=== PATIENT | female | born 1935 | race Caucasian/White ===

== ENCOUNTER → 2016-09-27 | Outpatient (REF) | payer MEDICARE, OTHER ==
[~2016-09-27] MED LIST: ASPI1TAB PO; ATEN25TA PO; ATOR1TAB19 PO; CALC600T7 PO; HYDR12.55 PO; LISI-538 PO; OCUVCAP PO
== END ==
LOC: M LAB REF 15:35
PROVIDERS: ATTEND Internal Medicine Endocrinology, Diabetes & Metabolism
DX: E04.1 Nontoxic single thyroid nodule (principal)

== ENCOUNTER → 2017-01-21 | Outpatient (REF) | payer MEDICARE, OTHER ==
[2017-01-21 13:16] LABS: ALBUMIN 3.6 GM/DL (3.2-5.2); ALBUMIN/GLOBULIN RATIO 1.09 (1.00-1.93); BILIRUBIN,TOTAL 0.3 MG/DL (0.2-1.0); CREATININE FOR GFR 1.09 MG/DL (0.55-1.02); GLOMERULAR FILTRATION RATE 51.4 (>32); POTASSIUM SERUM 3.6 MEQ/L (3.5-5.1); TOTAL PROTEIN 6.9 GM/DL (6.4-8.2)
== END ==
LOC: M LABDRAW1 12:23
PROVIDERS: ATTEND Physician Assistant
DX: E78.00 Pure hypercholesterolemia, unspecified (principal); I11.9 Hypertensive heart disease without heart failure

== ENCOUNTER 2017-03-09 16:35 | Emergency (ER) | payer MEDICARE, BC, OTHER ==
[~2017-03-09] VITALS: Ht 152.4 cm; Wt 97.9 kg
[2017-03-09] MEDS ORDERED: ADACEL/BOOSTRIX VACCINE (DIPHTH/PERTUSS/ACELL/TETANUS)0.5ML SYR (90715) IM ONE (17:45)
[2017-03-09] MEDS ORDERED: LIDOCAINE 2% MDV 20 ML VIAL SC ONE (18:15)
[2017-03-09 18:53] VITALS: BP 172/82
--- NOTE | 2017-03-09 19:04 | REP ---
Right index finger series: Four views: History: Distal index finger injury. Findings: There is soft-tissue swelling about the distal phalanx and DIP joint of the index finger. Osteoarthritic spurring and joint space narrowing is seen at the DIP joint. This is moderate in degree. No fracture or opaque foreign body is appreciated. 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 No fracture or opaque foreign body seen. Signed by Lorenzo Murphy MD 03/09/2017 08:28 P
== END 2017-03-09 18:56 | disposition home or self-care (01) ==
LOC: M ED 16:35
DX: S61.210A Laceration without foreign body of right index finger without damage to nail, initial encounter (principal); W23.1XXA Caught, crushed, jammed, or pinched between stationary objects, initial encounter; Y92.099 Unspecified place in other non-institutional residence as the place of occurrence of the external cause; Y93.89 Activity, other specified; Y99.9 Unspecified external cause status

== ENCOUNTER → 2017-06-30 | Outpatient (REF) | payer MEDICARE, OTHER ==
[2017-06-30 15:58] LABS: BASO # 0.1 10^3/uL (0.0-0.2); BASO % 0.6 % (0.0-1.0); EOS # 0.2 10^3/uL (0.0-0.50); EOS % 2.6 % (0.0-3.0); IMMATURE GRANULOCYTE % 0.3 % (0-0); LYMPH # 2.7 10^3/uL (1.5-4.5); LYMPH % 35.3 % (24.0-44.0); MEAN CORPUSCULAR HEMOGLOBIN 29.7 pg (27.0-33.0); MEAN CORPUSCULAR HGB CONC 33.6 g/dl (32.0-36.5); MEAN CORPUSCULAR VOLUME 88.3 fl (80.0-96.0); MONO # 0.5 10^3/uL (0.0-0.8); NEUTROPHILS # 4.2 10^3/uL (1.8-7.7); NEUTROPHILS % 54.2 % (36.0-66.0); PLATELET COUNT, AUTOMATED 330 10^3/uL (150-450); RED CELL DISTRIBUTION WIDTH 13.5 % (11.5-14.5); WHITE BLOOD COUNT 7.8 10^3/uL (4.0-10.0)
[2017-06-30 16:29] LABS: ERYTHROCYTE SEDIMENTATION RATE 30 mm/hr (0-30)
== END ==
LOC: M LABDRAW1 14:35
PROVIDERS: ATTEND Ophthalmology
DX: M31.6 Other giant cell arteritis (principal)

== ENCOUNTER → 2017-09-20 | Outpatient (REF) | payer MEDICARE, OTHER ==
[2017-09-20 16:30] LABS: C REACTIVE PROTEIN QUANTITATIV < 0.30 MG/DL (0.00-0.30)
[2017-09-20 17:00] LABS: ERYTHROCYTE SEDIMENTATION RATE 14 mm/hr (0-30)
== END ==
LOC: M LABDRAW1 15:33
DX: M31.6 Other giant cell arteritis (principal)
CPT/HCPCS: 86140

== ENCOUNTER → 2017-10-17 | Outpatient (REF) | payer MEDICARE, OTHER ==
[2017-10-17 12:41] LABS: C REACTIVE PROTEIN QUANTITATIV < 0.30 MG/DL (0.00-0.30)
[2017-10-17 13:21] LABS: ERYTHROCYTE SEDIMENTATION RATE 9 mm/hr (0-30)
== END ==
LOC: M LABDRAW1 11:48
DX: M31.6 Other giant cell arteritis (principal)
CPT/HCPCS: 86140

== ENCOUNTER → 2017-11-18 | Outpatient (REF) | payer MEDICARE, OTHER ==
[2017-11-18 12:10] LABS: C REACTIVE PROTEIN QUANTITATIV 0.33 MG/DL (0.00-0.30)
[2017-11-18 12:34] LABS: ERYTHROCYTE SEDIMENTATION RATE 10 mm/hr (0-30)
== END ==
LOC: M LABDRAW1 10:31
DX: M31.6 Other giant cell arteritis (principal)
CPT/HCPCS: 86140

== ENCOUNTER 2017-12-08 10:31 | Emergency (ER) | payer MEDICARE, BC, OTHER ==
[2017-12-08 10:21] LABS: BASO % 0.1 % (0.0-1.0); EOS % 0.3 % (0.0-3.0); HEMATOCRIT 40.6 % (36.0-47.0); IMMATURE GRANULOCYTE % 4.6 % (0-3.0); LYMPH % 21.5 % (24.0-44.0); MEAN CORPUSCULAR HEMOGLOBIN 30.6 pg (27.0-33.0); MEAN CORPUSCULAR HGB CONC 34.5 g/dl (32.0-36.5); MEAN CORPUSCULAR VOLUME 88.6 fl (80.0-96.0); MONO # 0.9 10^3/uL (0.0-0.8); MONO % 6.6 % (0.0-5.0); NEUTROPHILS # 9.4 10^3/uL (1.8-7.7); NEUTROPHILS % 66.9 % (36.0-66.0); PLATELET COUNT, AUTOMATED 314 10^3/uL (150-450); RED BLOOD COUNT 4.58 10^6/uL (4.00-5.40); RED CELL DISTRIBUTION WIDTH 15.6 % (11.5-14.5)
[2017-12-08] MEDS: PANTOPRAZOLE 40MG INJ (PROTONIX) (C9113) IV (10:32)
[2017-12-08 10:39] LABS: ALBUMIN 3.2 GM/DL (3.2-5.2); ALKALINE PHOSPHATASE 48 U/L (45-117); ALT/SGPT 50 U/L (12-78); ANION GAP 7 MEQ/L (8-16); AST/SGOT 21 U/L (7-37); BILIRUBIN,DIRECT 0.1 MG/DL (0.0-0.2); BILIRUBIN,TOTAL 0.4 MG/DL (0.2-1.0); BLOOD UREA NITROGEN 37 MG/DL (7-18); CALCIUM LEVEL 9.1 MG/DL (8.8-10.2); CARBON DIOXIDE LEVEL 30 MEQ/L (21-32); CHLORIDE LEVEL 104 MEQ/L (98-107); CPK CREATINE PHOSPHOKINASE 44 U/L (26-192); CREATININE FOR GFR 1.13 MG/DL (0.55-1.30); GLOMERULAR FILTRATION RATE 49.2 (>32); GLUCOSE, FASTING 83 MG/DL (70-100); LIPASE 129 U/L (73-393); SODIUM LEVEL 141 MEQ/L (136-145); TOTAL PROTEIN 6.4 GM/DL (6.4-8.2); TROPONIN I 0.02 NG/ML (< 0.10)
[2017-12-08 10:44] LABS: CK-MB VALUE MASS 3.2 NG/ML (<3.6); MB/CK RELATIVE INDEX 7.27 (< OR =4)
== END 2017-12-08 12:28 | disposition home or self-care (01) ==
LOC: M ED 10:31
DX: K29.60 Other gastritis without bleeding (principal); K20.9 Esophagitis, unspecified; T38.0X5A Adverse effect of glucocorticoids and synthetic analogues, initial encounter; I12.9 Hypertensive chronic kidney disease with stage 1 through stage 4 chronic kidney disease, or unspecified chronic kidney disease; N18.3 Chronic kidney disease, stage 3 (moderate); K58.9 Irritable bowel syndrome, unspecified; K21.9 Gastro-esophageal reflux disease without esophagitis; H40.9 Unspecified glaucoma; Z79.82 Long term (current) use of aspirin; Z79.899 Other long term (current) drug therapy; Z79.52 Long term (current) use of systemic steroids; Z87.891 Personal history of nicotine dependence; Z98.890 Other specified postprocedural states
CPT/HCPCS: C9113

== ENCOUNTER → 2018-01-13 | Outpatient (REF) | payer MEDICARE, BC, OTHER ==
[2018-01-13 16:01] LABS: CREATININE FOR GFR 1.21 MG/DL (0.55-1.30); GLOMERULAR FILTRATION RATE 45.5 (>32)
[2018-01-13 16:01] LABS: BLOOD UREA NITROGEN 35 MG/DL (7-18)
== END ==
LOC: M LABDRAW1 13:24
DX: Z79.899 Other long term (current) drug therapy (principal); M31.6 Other giant cell arteritis
CPT/HCPCS: 82565

== ENCOUNTER → 2018-02-07 | Outpatient (REF) | payer MEDICARE, OTHER ==
[2018-02-07 13:45] LABS: C REACTIVE PROTEIN QUANTITATIV < 0.30 MG/DL (0.00-0.30)
[2018-02-07 14:28] LABS: ERYTHROCYTE SEDIMENTATION RATE 51 mm/hr (0-30)
== END ==
LOC: M LABDRAW1 13:19
DX: M31.6 Other giant cell arteritis (principal); Z79.899 Other long term (current) drug therapy
CPT/HCPCS: 86140

== ENCOUNTER → 2018-04-17 | Outpatient (REF) | payer MEDICARE, OTHER ==
[2018-04-17 12:18] LABS: BASO # 0.1 10^3/uL (0.0-0.2); BASO % 0.5 % (0.0-1.0); EOS # 0.2 10^3/uL (0.0-0.50); EOS % 1.1 % (0.0-3.0); HEMATOCRIT 37.5 % (36.0-47.0); HEMOGLOBIN 12.8 g/dl (12.0-15.5); IMMATURE GRANULOCYTE # 0.2 10^3/uL (0-0); IMMATURE GRANULOCYTE % 1.4 % (0-3.0); LYMPH # 2.4 10^3/uL (1.5-4.5); LYMPH % 17.1 % (24.0-44.0); MEAN CORPUSCULAR HEMOGLOBIN 32.1 pg (27.0-33.0); MEAN CORPUSCULAR HGB CONC 34.1 g/dl (32.0-36.5); MONO # 0.7 10^3/uL (0.0-0.8); MONO % 5.3 % (0.0-5.0); NEUTROPHILS # 10.3 10^3/uL (1.8-7.7); NEUTROPHILS % 74.6 % (36.0-66.0); PLATELET COUNT, AUTOMATED 302 10^3/uL (150-450); RED BLOOD COUNT 3.99 10^6/uL (4.00-5.40); RED CELL DISTRIBUTION WIDTH 13.3 % (11.5-14.5); WHITE BLOOD COUNT 13.8 10^3/uL (4.0-10.0)
[2018-04-17 12:28] LABS: C REACTIVE PROTEIN QUANTITATIV < 0.30 MG/DL (0.00-0.30)
[2018-04-17 13:27] LABS: ERYTHROCYTE SEDIMENTATION RATE 9 mm/hr (0-30)
== END ==
LOC: M LABDRAW1 11:38
DX: Z79.899 Other long term (current) drug therapy (principal)
CPT/HCPCS: 86140

== ENCOUNTER 2018-06-07 16:34 | Emergency (ER) | payer MEDICARE, BC, OTHER ==
[2018-06-07] MEDS: traMADol 50 MG TAB PO (19:24)
== END 2018-06-07 19:33 | disposition home or self-care (01) ==
LOC: M ED 16:34
DX: M25.562 Pain in left knee (principal); R10.30 Lower abdominal pain, unspecified; Z91.81 History of falling; I10 Essential (primary) hypertension; E78.5 Hyperlipidemia, unspecified; K21.9 Gastro-esophageal reflux disease without esophagitis; Z87.891 Personal history of nicotine dependence; Z79.899 Other long term (current) drug therapy; Z79.82 Long term (current) use of aspirin
CPT/HCPCS: 73564

== ENCOUNTER → 2018-06-08 | Outpatient (REF) | payer MEDICARE, OTHER ==
[2018-06-08 13:16] LABS: ERYTHROCYTE SEDIMENTATION RATE 12 mm/hr (0-30)
== END ==
LOC: M LABDRAW1 12:09
DX: M31.6 Other giant cell arteritis (principal)
CPT/HCPCS: 36415

== ENCOUNTER → 2018-11-03 | Outpatient (REF) | payer MEDICARE, OTHER ==
[~2018-11-03] MED LIST changes: +ACET30TAB PO; +ACET500T15 PO; +CAPS0.022 TOP; +FAMO1TAB11 PO; +METO1TAB32 PO; +OXYB5TAB PO; +PRED5TA PO; +PROT1TAB2 PO; +STOO100C PO; +SUCR1TA PO
== END ==
LOC: M LABDRAW1 16:56
PROVIDERS: ATTEND Nurse Practitioner
DX: M31.6 Other giant cell arteritis (principal)

== ENCOUNTER 2019-05-01 13:59 | Emergency (ER) | payer MEDICARE, BC, OTHER ==
[~2019-05-01] VITALS: Ht 149.9 cm; Wt 46.0 kg
[~2019-05-01 13:59] MED LIST changes: +ACET-716 PO; -ACET30TAB PO; -ASPI1TAB PO; +ASPI81TA26 PO; +MM S100C PO; -OXYB5TAB PO; +OXYB5TAB2 PO; -STOO100C PO
[2019-05-01] MEDS ORDERED: DONETAB6 PO (15:28)
[2019-05-01] MEDS ORDERED: CITA40TA4 PO (15:29)
[2019-05-01] MEDS ORDERED: NS 500 ML IV ONE (15:30)
[2019-05-01 16:36] LABS: BASO # 0.1 10^3/uL (0.0-0.2); BASO % 1.2 % (0.0-1.0); EOS # 0.2 10^3/uL (0.0-0.50); EOS % 2.6 % (0.0-3.0); HEMATOCRIT 36.8 % (36.0-47.0); HEMOGLOBIN 12.3 g/dl (12.0-15.5); LYMPH % 33.7 % (24.0-44.0); MEAN CORPUSCULAR HEMOGLOBIN 30.6 pg (27.0-33.0); MEAN CORPUSCULAR HGB CONC 33.4 g/dl (32.0-36.5); MEAN CORPUSCULAR VOLUME 91.5 fl (80.0-96.0); MONO # 0.4 10^3/uL (0.0-0.8); MONO % 6.7 % (0.0-5.0); NEUTROPHILS # 3.3 10^3/uL (1.8-7.7); NEUTROPHILS % 55.8 % (36.0-66.0); PLATELET COUNT, AUTOMATED 266 10^3/uL (150-450); RED BLOOD COUNT 4.02 10^6/uL (4.00-5.40); WHITE BLOOD COUNT 5.8 10^3/uL (4.0-10.0)
[2019-05-01 16:59] LABS: ALBUMIN 3.5 GM/DL (3.2-5.2); ALT/SGPT 20 U/L (12-78); BILIRUBIN,DIRECT < 0.1 MG/DL (0.0-0.2); BILIRUBIN,TOTAL 0.3 MG/DL (0.2-1.0); BLOOD UREA NITROGEN 29 MG/DL (7-18); CALCIUM LEVEL 9.5 MG/DL (8.8-10.2); CARBON DIOXIDE LEVEL 25 MEQ/L (21-32); CHLORIDE LEVEL 109 MEQ/L (98-107); CK-MB VALUE MASS < 1.0 NG/ML (<3.6); CPK CREATINE PHOSPHOKINASE 74 U/L (26-192); CREATININE FOR GFR 0.94 MG/DL (0.55-1.30); GLOMERULAR FILTRATION RATE > 60.0 (>32); GLUCOSE, FASTING 72 MG/DL (70-100); LIPASE 220 U/L (73-393); MB/CK RELATIVE INDEX 1.35 (< OR =4); SODIUM LEVEL 139 MEQ/L (136-145); TOTAL PROTEIN 6.3 GM/DL (6.4-8.2); TROPONIN I < 0.02 NG/ML (< 0.10)
[2019-05-01] MEDS ORDERED: ISOVUE-370 76% 100ML VIAL (Q9967) As Ordered ONE (18:03)
--- NOTE | 2019-05-01 18:45 | REPVR ---
EXAM: CT Abdomen and Pelvis With Contrast EXAM DATE/TIME: 05/01/2019 6:12 PM CLINICAL HISTORY: 83 years old, female; Abdominal pain; Generalized; Additional info: Diffuse abd pain x4 days TECHNIQUE: Imaging protocol: Axial computed tomography images of the abdomen and pelvis with intravenous contrast. Radiation optimization: All CT scans at this facility use at least one of these dose optimization techniques: automated exposure control; mA and/or kV adjustment per patient size (includes targeted exams where dose is matched to clinical indication); or iterative reconstruction. Contrast material: ISOVUE 370; Contrast volume: 100 ml; Contrast route: IV; COMPARISON: CR Hip, Ap,Lat 06/07/2018 5:07 PM FINDINGS: Significant exam limitation secondary to patient motion Lungs: No suspicious mass or airspace process in the visualized lung bases. Liver: Liver is unremarkable except for a simple fluid density 5 mm cyst posterior to the gallbladder fossa. Gallbladder and bile ducts: At least one calcified gallstone is seen within the lumen of the gallbladder. Pancreas: Pancreas appears normal. No focal mass or peripancreatic inflammation. Spleen: Spleen appears homogeneous without focal mass. Adrenals: Adrenal glands are normal in appearance. Kidneys and ureters: Kidneys are grossly unremarkable. Stomach and bowel: No evidence of small bowel obstruction. Diverticular changes are present within the colon without inflammation. Appendix: No evidence of acute appendicitis without convincing visualization of the appendix. Intraperitoneal space: No pneumoperitoneum. No abnormal pelvic mass. Vasculature: Atherosclerotic change present in the aorta, without aneurysm. Lymph nodes: No enlarged lymph nodes. Bladder: Bladder appears normal. Bones/joints: Degenerative changes are seen in the lumbar spine with disc height loss, endplate osteophytes and hypertrophic facet arthropathy. Other findings: Images are limited due to patient motion. IMPRESSION: 1. Fairly extensive colonic diverticular change without evidence of active inflammation. 2. Cholelithiasis without biliary obstruction. 3. Exam Limited significantly because of patient motion COMMENT: Consistent with the [employer]'s Incidental Findings Committee Report (J Am Mathieu Radiol 2010): Unless the patient's specific circumstances suggest otherwise, any liver lesion 0.5 cm or less, any cystic kidney lesion less than 1.0 cm, and/or any adrenal lesion 1.0 cm or less not otherwise characterized in this report as possessing suspicious or indeterminate imaging features is/are highly likely to be benign and do not require follow-up imaging or biopsy. Electronically signed by: Ketan Michaels On 05/01/2019 18:45:15 PM
--- NOTE | 2019-05-01 20:35 | ECGEPIP ---
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
[2019-05-01 21:48] VITALS: BP 191/81
== END 2019-05-01 22:17 | disposition home or self-care (01) ==
LOC: M ED 13:59
DX: A04.0 Enteropathogenic Escherichia coli infection (principal); E86.0 Dehydration; K80.20 Calculus of gallbladder without cholecystitis without obstruction; K57.90 Diverticulosis of intestine, part unspecified, without perforation or abscess without bleeding; M54.9 Dorsalgia, unspecified; I10 Essential (primary) hypertension; E78.5 Hyperlipidemia, unspecified; J44.9 Chronic obstructive pulmonary disease, unspecified; M81.0 Age-related osteoporosis without current pathological fracture; R32 Unspecified urinary incontinence; I65.29 Occlusion and stenosis of unspecified carotid artery; Z87.891 Personal history of nicotine dependence
CPT/HCPCS: 74177; 80048; 80076; 81001; 82550; 82553; 83690; 84484; 85025; 87086; 87507; 93005; 96360; 96361; 99284; Q9967

== ENCOUNTER 2019-05-31 12:32 | Inpatient (IN) | payer MEDICARE, BC, OTHER ==
[~2019-05-31] VITALS: Ht 152.4 cm; Wt 46.5 kg
[~2019-05-31 12:32] MED LIST changes: +CITA40TA4 PO; +DONETAB6 PO
[2019-05-31] MEDS ORDERED: ALIG4CAP PO (12:49)
[2019-05-31 13:18] LABS: BASO # 0.1 10^3/uL (0.0-0.2); BASO % 0.6 % (0.0-1.0); EOS % 0.2 % (0.0-3.0); HEMATOCRIT 39.8 % (36.0-47.0); HEMOGLOBIN 13.5 g/dl (12.0-15.5); LYMPH # 1.2 10^3/uL (1.5-5.0); LYMPH % 14.1 % (24.0-44.0); MEAN CORPUSCULAR HEMOGLOBIN 30.8 pg (27.0-33.0); MEAN CORPUSCULAR HGB CONC 33.9 g/dl (32.0-36.5); MEAN CORPUSCULAR VOLUME 90.7 fl (80.0-96.0); MONO # 0.4 10^3/uL (0.0-0.8); MONO % 4.7 % (0.0-5.0); NEUTROPHILS # 6.8 10^3/uL (1.5-8.5); NEUTROPHILS % 80.2 % (36.0-66.0); PLATELET COUNT, AUTOMATED 280 10^3/uL (150-450); RED BLOOD COUNT 4.39 10^6/uL (4.00-5.40); VENOUS BASE EXCESS 1.9 (-2.0-2.0); VENOUS HCO3 27.3 MEQ/L (23.0-27.0); VENOUS O2 SATURATION 80.8 % (60.0-80.0); VENOUS PARTIAL PRESSURE CO2 45.4 mmHg (38.0-50.0); VENOUS PARTIAL PRESSURE O2 47.1 mmHg (30.0-50.0); VENOUS PH 7.397 UNITS (7.330-7.430); VENOUS STANDARD HCO3 25.7 MEQ/L; VENOUS TOTAL CO2 28.7 MEQ/L (24.0-28.0); WHITE BLOOD COUNT 8.5 10^3/uL (4.0-10.0)
[2019-05-31] MEDS: NS 1,000 ML IV SCH ×2 (13:27→23:34)
[2019-05-31] MEDS ORDERED: LABETALOL HCL 100 MG/20 ML VIAL IV STA (13:38)
[2019-05-31] MEDS ORDERED: METOPROLOL TART 25 MG TABLET PO ONE (13:45)
--- NOTE | 2019-05-31 14:02 | REP ---
CT BRAIN WITHOUT IV CONTRAST: CT brain performed without IV contrast. There is moderate atrophy. There is no midline shift or mass effect. Patchy periventricular small vessel ischemic changes are seen in the right matter bilaterally. There is no acute intracranial hemorrhage. There is no extra-axial fluid collection. No skull fracture is seen. There are vascular calcifications in the carotid siphons. IMPRESSION: Chronic changes as above with no acute intracranial hemorrhage or other acute finding. Electronically Signed by Kel Alicea MD 05/31/2019 05:39 P
--- NOTE | 2019-05-31 14:05 | REP ---
CT CERVICAL SPINE: CT cervical spine performed in the axial plane with sagittal and coronal reconstruction images. There is no compression fracture. There is no prevertebral soft tissue swelling. There is moderate spurring with subchondral sclerosis and disc space narrowing at C5-6 and C6-7, with posterior osteophytic ridging. There is disc bulging at C4-5. IMPRESSION: Degenerative changes without evidence of acute fracture or dislocation. Electronically Signed by Kel Alicea MD 05/31/2019 05:39 P
[2019-05-31 14:06] LABS: ALBUMIN 3.7 GM/DL (3.2-5.2); ALT/SGPT 19 U/L (12-78); BILIRUBIN,DIRECT 0.1 MG/DL (0.0-0.2); BILIRUBIN,TOTAL 0.5 MG/DL (0.2-1.0); BLOOD UREA NITROGEN 20 MG/DL (7-18); CALCIUM LEVEL 9.4 MG/DL (8.8-10.2); CARBON DIOXIDE LEVEL 28 MEQ/L (21-32); CHLORIDE LEVEL 104 MEQ/L (98-107); CK-MB VALUE MASS < 1.0 NG/ML (<3.6); CPK CREATINE PHOSPHOKINASE 35 U/L (26-192); GLOMERULAR FILTRATION RATE 56.4 (>32); GLUCOSE, FASTING 88 MG/DL (70-100); MB/CK RELATIVE INDEX 2.86 (< OR =4); POTASSIUM SERUM 3.8 MEQ/L (3.5-5.1); SODIUM LEVEL 138 MEQ/L (136-145); THYROID STIMULATING HORMONE 0.708 uIU/ML (0.358-3.740); TOTAL PROTEIN 7.2 GM/DL (6.4-8.2); TROPONIN I < 0.02 NG/ML (< 0.10)
--- NOTE | 2019-05-31 14:11 | REP ---
CHEST, SINGLE VIEW: There is no evidence of acute infiltrate. No pleural effusion is seen. The heart is normal in size. The mediastinal silhouette is unremarkable. The visualized osseous structures are intact. There is calcification of the thoracic aorta. IMPRESSION: No acute pulmonary disease. Electronically Signed by Kel Alicea MD 05/31/2019 05:39 P
[2019-05-31] MEDS ORDERED: ACET25TA12 PO (15:41)
[2019-05-31] MEDS ORDERED: DONE10TA90 PO (15:41)
[2019-05-31] MEDS ORDERED: DOCU100C16 PO (15:41)
[2019-05-31] MEDS ORDERED: MOM 30ML SUSPENSION UDC PO PRN (15:45)
--- NOTE | 2019-05-31 16:02 | HPEPDOC ---
General Date of Admission May 31, 2019 at 12:33 Date of Service: May 31, 2019 Chief Complaint The patient is a 84-year-old female admitted with a reason for visit of FALL. Source: Patient, Family Exam Limitations: Mild cognitive slowing Timing/Duration: 4-6 hours Severity: Mild Associated Symptoms: Headaches, Loss of appetite, Nausea History of Present Illness Pt a 84 yo female with PMH of temporal arteritis and b/l internal carotid artery luminal narrowing less than 50% presented to [facility] due to syncope episode that happened this morning around 10AM. It was noted that patient went into the bathroom to urinate, and she lost consciousness and slumped to the flood. Family member reported she called her grand-daughter a few minutes later on. It was noted that she did not hit her body. She reported nausea prior to the syncope episode. Pt reported bilateral temporal region headache; reported being on prednisone tx for temporal arteritis about 2 years ago; reported vision is not t oo good but no further info could be obtained. She reported diffuse diarrhea for the past few months as well as decreased appetite due to dysphagia; pt is unable if there's sensation of food stuck in her throat. No other complaints was noted including fever, chills, vomiting, chest pain, palpitation, or sob. Home Medications Scheduled Acetaminophen/Diphenhydramine (Acetaminophen Pm Caplet) 1 Each Tablet, 2 TAB PO QHS, (Reported) Bifidobacterium Infantis (Align) 4 Mg Capsule, 1 CAP PO QPM, (Reported) Calcium Carbonate/Vitamin D3 (Calcium 600-Vit D3 200 Tablet) 1 Tab Tab, 1 TAB PO QPM, (Reported) Citalopram Hydrobromide (Citalopram HBr) 40 Mg Tablet, 40 MG PO QPM, (Reported) Donepezil HCl (Donepezil HCl) 10 Mg Tablet, 10 MG PO QPM, (Reported) Oxybutynin Chloride (Oxybutynin Chloride ER) 5 Mg Tab, 5 MG PO QPM, (Reported) Scheduled PRN Acetaminophen (Acetaminophen) 500 Mg Tab, 500 MG PO Q4H PRN for PAIN, (Reported) Docusate Sodium (Docusate Sodium) 100 Mg Capsule, 100 MG PO DAILY PRN for CONSTIPATION, (Reported) Allergies Coded Allergies: No Known Allergies (Unverified , 02/10/15) Past Medical History Medical History Temporal artery arteritis Bilateral internal carotid artery narrowing less than 50% HTN now not requiring BP meds outpt Dementia Urinary urgency EPEC GI infection Surgical History Colonoscopy Family History Mother had a stroke Social History * Smoker: former Smoker (Quit years ago; smoke [id number] hx) Alcohol: Denies Lives at home with daughter and grand-daughter A-FIB/CHADSVASC A-FIB History Current/History of A-Fib/PAF?: No Review of Systems Constitutional: Denies: Chills, Fever ENT: Reports: Dysphagia Pulmonary: Denies: Dyspnea Cardiovascular: Denies: Chest Pain, Palpitations Gastrointestinal: Reports: Nausea, Diarrhea, Other Symptoms (dysphagia and decreased appetite); Denies: Vomiting, Abdominal Pain, Hematochezia Genitourinary: Reports: Incontinence (urge incontinence, chronic) Physical Examination General Exam: Positive: Alert, No Acute Distress Eye Exam: Positive: EOMI ENT Exam: Positive: Atraumatic, Other ENT (mucous membrane appears to be dry) Neck Exam: Positive: Supple Chest Exam: Positive: Clear to auscultation, Normal air movement; Negative: Rales, Rhonchi, Wheezing Heart Exam: Positive: Rate Normal, Regular Rhythm, Normal S1, Normal S2 Abdomen Exam: Positive: Normal bowel sounds, Soft Extremity Exam: Negative: Edema, Tenderness Neuro Exam: Positive: Normal Speech, Normal Tone, Cranial Nerves 3-12 NL Psych Exam: Positive: Mood NL, Oriented x 3 Vital Signs Vital Signs Date Time Temp Pulse Resp B/P (MAP) Pulse Ox O2 Delivery O2 Flow Rate FiO2 05/31/19 15:19 98.3 05/31/19 14:47 72 05/31/19 14:45 18 152/70 (97) 05/31/19 12:47 98 05/31/19 12:46 Room Air Laboratory Data Labs 24H Laboratory Tests 2 05/31/19 13:06: Immature Granulocyte % (Auto) 0.2, White Blood Count 8.5, Red Blood Count 4.39, Hemoglobin 13.5, Hematocrit 39.8, Mean Corpuscular Volume 90.7, Mean Corpuscular Hemoglobin 30.8, Mean Corpuscular Hemoglobin Concent 33.9, Red Cell Distribution Width 13.8, Platelet Count 280, Neutrophils (%) (Auto) 80.2H, Lymphocytes (%) (Auto) 14.1L, Monocytes (%) (Auto) 4.7, Eosinophils (%) (Auto) 0.2, Basophils (%) (Auto) 0.6, Neutrophils # (Auto) 6.8, Lymphocytes # (Auto) 1.2L, Monocytes # (Auto) 0.4, Eosinophils # (Auto) 0.0, Basophils # (Auto) 0.1, Nucleated Red Blood Cells % (auto) 0.0, POC Glucose (Misc Panel) 90, POC Sodium (Misc Panel) 138, POC Potassium (Misc Panel) 3.9, POC Chloride (Misc Panel) 101, POC Total CO2 (Misc Panel) 28.0H, POC Blood Urea Nitrogen (Misc Panel 18, POC Ionized Calcium (Misc Panel) 4.7, POC Creatinine (Misc Panel) 1.1, POC Hematocrit (Misc Panel) 41.0, Blood Gas Bicarbonate Standard 25.7, Venous Blood pH 7.397, Venous Blood Partial Pressure CO2 45.4, Venous Blood Partial Pressure O2 47.1, Venous Blood Total Carbon Dioxide 28.7H, Venous Blood HCO3 27.3H, Venous Blood Oxygen Saturation 80.8H, Venous Blood Base Excess 1.9, Anion Gap 6L, Glomerular Filtration Rate 56.4, Calcium Level 9.4, Aspartate Amino Transf (AST/SGOT) 20, Alanine Aminotransferase (ALT/SGPT) 19, Alkaline Phosphatase 73, Total Bilirubin 0.5, Direct Bilirubin 0.1, Ammonia 16, Total Creatine Kinase 35, Creatine Kinase MB < 1.0, Creatine Kinase MB Relative Index 2.86, Troponin I < 0.02, Total Protein 7.2, Albumin 3.7, Albumin/Globulin Ratio 1.06, Thyroid Stimulating Hor comfort (TSH) 0.708 05/31/19 13:14: Lactic Acid Level 1.1 05/31/19 13:20: Osmolality 287 05/31/19 13:58: Urine Color YELLOW, Urine Appearance HAZY, Urine pH 8.0, Urine Specific [place] 1.011, Urine Protein NEGATIVE, Urine Glucose (UA) NEGATIVE, Urine Ketones TRACEH, Urine Blood NEGATIVE, Urine Nitrite NEGATIVE, Urine Bilirubin NEGATIVE, Urine Urobilinogen 0.2, Urine Leukocyte Esterase NEGATIVE, Urine WBC (Auto) 0, Urine RBC (Auto) 4H, Urine Hyaline Casts (Auto) 0, Urine Bacteria (Auto) NEGATIVE, Urine Squamous Epithelial Cells 0, Urine Mucus (Auto) SMALL, Urine Sperm (Auto) CBC/BMP Laboratory Tests 05/31/19 13:06 Red Blood Count 4.39, Mean Corpuscular Volume 90.7, Mean Corpuscular Hemoglobin 30.8, Mean Corpuscular Hemoglobin Concent 33.9, Red Cell Distribution Width 13.8, Neutrophils (%) (Auto) 80.2 H, Lymphocytes (%) (Auto) 14.1 L, Monocytes (%) (Auto) 4.7, Eosinophils (%) (Auto) 0.2, Basophils (%) (Auto) 0.6, Neutrophils # (Auto) 6.8, Lymphocytes # (Auto) 1.2 L, Monocytes # (Auto) 0.4, Eosinophils # (Auto) 0.0, Basophils # (Auto) 0.1 Microbiology Microbiology 05/31/19 Blood Culture, Received Pending Assessment/Plan 1. Syncope likely 2/2 vasovagal episode vs situational vs arrhythmia/cardiogenic causes -remote tele and EEG -First trop <0.02; trend troponin -PT ordered -Fall precaution 2. Severe asymptomatic hypertension -Pt blood pressure noted to be elevated with SBP in the 190s -Not on outpt BP med as was told she does not require BP meds due to stable BP -Nausea prior to admission. Zofran PRN -Will start pt on low dose lisinopril at this time 3. Chronic diarrhea -reported diffuse diarrhea for months currently still present but further info not able to be obtained -Cont home med probiotics; GI panel ordered -Nausea prior to admission. Zofran PRN -EPEC GI infection in 04/2019 4. Dysphagia - reported chronic dysphagia. It was noted that she also had some weight loss over time - swallow eval ordered; diet consult 5. Hx of temporal arteritis -Hx of temporal arteritis reported to be s/p biopsy; received steroid tx 2 years ago -reported headache in b/l temporal region. Tylenol PRN for now -ESR pending; consider steroid if ESR elevated 6. CKD stage 3a -GFR appears to be baseline -creat wnl -F/u BMP 7. Alzheimer's dementia -Cont outpt med Donezepil 8. Urge incontinence -pt reported medical hx of urge incontinence -cont home med 9. General deconditioning likely due to advanced age -PT ordered; diet consult -fall precaution DVT prophylaxis: heparin, SCD, TEDS I performed a history and physical examination of the patient and discussed their management with the above documenter. I reviewed the note and agree with the documented findings and plan of care. Plan / VTE VTE Prophylaxis Ordered?: Yes RYANN SINGLETON DO May 31, 2019 16:02 AVRIL ALVAREZ MD Jun 01, 2019 09:51
[2019-05-31 16:26] VITALS: BP 138/68
[2019-05-31] MEDS: ACETAMINOPHEN TAB 650MG DOSE (2X325MG) PO PRN (19:30)
[2019-05-31 20:00] VITALS: BP 116/54
[2019-05-31] MEDS: DONEPEZIL 5 MG TAB PO SCH (20:05)
[2019-05-31] MEDS ORDERED: oxyBUTYnin *DITROPAN XL* 5 MG TABCR PO SCH (21:00)
--- NOTE | 2019-05-31 21:41 | ECGEPIP ---
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
[2019-05-31] MEDS ORDERED: HEPARIN SOD (PORCINE) 5000 UNITS/ML VIAL SC SCH (22:00)
[2019-06-01 06:00] VITALS: BP 145/68
[2019-06-01 06:46] LABS: HEMATOCRIT 31.8 % (36.0-47.0); MEAN CORPUSCULAR VOLUME 91.4 fl (80.0-96.0); PLATELET COUNT, AUTOMATED 224 10^3/uL (150-450); RED BLOOD COUNT 3.48 10^6/uL (4.00-5.40); WHITE BLOOD COUNT 5.9 10^3/uL (4.0-10.0)
[2019-06-01 06:51] LABS: HEMOGLOBIN 10.8 g/dl (12.0-15.5)
[2019-06-01 07:09] LABS: BLOOD UREA NITROGEN 17 MG/DL (7-18); CALCIUM LEVEL 8.2 MG/DL (8.8-10.2); CARBON DIOXIDE LEVEL 25 MEQ/L (21-32); CHLORIDE LEVEL 108 MEQ/L (98-107); CREATININE FOR GFR 0.94 MG/DL (0.55-1.30); GLOMERULAR FILTRATION RATE > 60.0 (>32); GLUCOSE, FASTING 77 MG/DL (70-100); POTASSIUM SERUM 3.4 MEQ/L (3.5-5.1); SODIUM LEVEL 141 MEQ/L (136-145)
--- NOTE | 2019-06-01 07:14 | IPNPDOC ---
Subjective Date Seen The patient was seen on 06/01/19. Subjective Chief Complaint/HPI Pt examined on the chair today with no family member present in the exam room thus limited info was able to be obtained due to pt's memory/mental status. It was noted she had some confusion episodes overnight; pt does not recall the confusion episodes. She initially said no diarrhea after admission but later stated does not remember if she had a BM yesterday; pt also does not recall if she ate dinner last night. She denies any chest pain, N/V, lightheadedness, dizziness, palpitation, or abdominal pain. Upon re-visit pt's daughter reported pt having hallucinations with small animal shadows since ; also worsening resting tremor and some word-finding difficulty at times. She denies pt having PMH of dementia which was reported by pt's [id number] at bedside upon admission; daughter stating that Donezepil was intended to help with memory. General: Denies: Chills Constitutional: Denies: Chills, Fever ENT: Reports: Dysphagia Pulmonary: Denies: Dyspnea Cardiovascular: Denies: Chest Pain, Palpitations Gastrointestinal: Denies: Nausea, Vomiting, Abdominal Pain Psych: Reports: Memory Issues Objective Physical Examination General Exam: Positive: Alert, No Acute Distress Eye Exam: Positive: EOMI ENT Exam: Positive: Atraumatic Neck Exam: Positive: Supple Chest Exam: Positive: Clear to auscultation, Normal air movement; Negative: Rales, Rhonchi, Wheezing Heart Exam: Positive: Rate Normal, Regular Rhythm, Normal S1, Normal S2 Abdomen Exam: Positive: Normal bowel sounds, Soft Extremity Exam: Positive: Normal pulses; Negative: Edema, Tenderness, Swelling Neuro Exam: Positive: Normal Speech, Normal Tone, Cranial Nerves 3-12 NL, Other (resting tremor noted in b/l hands) Psych Exam: Positive: Mood NL, Oriented x 3; Negative: Memory Intact Assessment /Plan Assessment 1. Syncope likely 2/2 vasovagal episode vs situational vs arrhythmia/cardiogenic causes -remote tele and EEG -Trop series cont to be<0.02 -PT ordered -Fall precaution 2. Severe asymptomatic hypertension; resolved -Pt blood pressure noted to be elevated with SBP in the 190s -Not on outpt BP med reporting she was told outpatient that she does not require BP meds due to stable BP -Nausea prior to admission. Zofran PRN -Will start pt on low dose lisinopril at this time 3. Chronic diarrhea -reported diffuse diarrhea for months currently still present but further info not able to be obtained -Cont home med probiotics; GI panel pending -Nausea prior to admission. Zofran PRN -EPEC GI infection in 04/2019 4. Dysphagia - reported chronic dysphagia. It was noted that she also had some weight loss over time - swallow eval pending; diet consult pending 5.Normocytic anemia likely 2/2 hemodilution -Pt reported never having colonoscopy; pt unable to recall if there's BM since admission or if blood is present -occult blood ordered as pt reported progressive weight loss 6. Hx of temporal arteritis -Hx of temporal arteritis reported to be s/p biopsy; received steroid tx 2 years ago -reported headache in b/l temporal region. Tylenol PRN for now -ESR wnl 7. Chronic progressive weight loss -pt reported losing 23 lbs of weight loss due to decreased appetite and dysphagia -Pt reported she never had colonoscopy; daughter reported colonoscopy years ago without significant abnormality she remembered -Bedside swallow eval recommends puree diet. Nutritional assessment pending. Ensure ordered as family requested unless otherwise recommended by nutritional assessment.Consider outpt workup for progressive weight loss such as endoscope 8. Likely Lewy body dementia -It was noted pt had some confusion overnight; pt does not recall confusion events. Later discussion with daughter reporting that she has been having hallucinations since . Pt's daughter reported no hx of dementia while upon admission pt's [id number] reported having dementia -Short-term memory loss; resting tremor noted upon re-visit. D/C oxybutynin -Cont outpt med Donezepil; consider f/u outpt -EEG also pending 9. Urge incontinence -pt reported medical hx of urge incontinence -d/c home med oxybutynin 10. General deconditioning likely due to advanced age and/or imbalanced nutrition -PT and diet consult pending -fall precaution I saw and evaluated the patient. I agree with the findings and plan of care as documented in the above note Plan/VTE VTE Prophylaxis Ordered?: Yes VS, I&O, 24H, Fishbone Vital Signs/I&O Vital Signs Date Time Temp Pulse Resp B/P (MAP) Pulse Ox O2 Delivery O2 Flow Rate FiO2 06/01/19 06:00 97.2 68 17 145/68 (93) 97 05/31/19 12:46 Room Air I&O- Last 24 Hours up to 6 AM 06/01/19 05:59 Intake Total 360 ml Output Total 600 ml Balance -240 ml Laboratory Data 24H LABS Laboratory Tests 2 05/31/19 13:06: Immature Granulocyte % (Auto) 0.2, White Blood Count 8.5, Red Blood Count 4.39, Hemoglobin 13.5, Hematocrit 39.8, Mean Corpuscular Volume 90.7, Mean Corpuscular Hemoglobin 30.8, Mean Corpuscular Hemoglobin Concent 33.9, Red Cell Distribution Width 13.8, Platelet Count 280, Neutrophils (%) (Auto) 80.2H, Lymphocytes (%) (Auto) 14.1L, Monocytes (%) (Auto) 4.7, Eosinophils (%) (Auto) 0.2, Basophils (%) (Auto) 0.6, Neutrophils # (Auto) 6.8, Lymphocytes # (Auto) 1.2L, Monocytes # (Auto) 0.4, Eosinophils # (Auto) 0.0, Basophils # (Auto) 0.1, Nucleated Red Blood Cells % (auto) 0.0, POC Glucose (Misc Panel) 90, POC Sodium (Misc Panel) 138, POC Potassium (Misc Panel) 3.9, POC Chloride (Misc Panel) 101, POC Total CO2 (Misc Panel) 28.0H, POC Blood Urea Nitrogen (Misc Panel 18, POC Ionized Calcium (Misc Panel) 4.7, POC Creatinine (Misc Panel) 1.1, POC Hematocrit (Misc Panel) 41.0, Blood Gas Bicarbonate Standard 25.7, Venous Blood pH 7.397, Venous Blood Partial Pressure CO2 45.4, Venous Blood Partial Pressure O2 47.1, Venous Blood Total Carbon Dioxide 28.7H, Venous Blood HCO3 27.3H, Venous Blood Oxygen Saturation 80.8H, Venous Blood Base Excess 1.9, Anion Gap 6L, Glomerular Deonte tration Rate 56.4, Calcium Level 9.4, Aspartate Amino Transf (AST/SGOT) 20, Alanine Aminotransferase (ALT/SGPT) 19, Alkaline Phosphatase 73, Total Bilirubin 0.5, Direct Bilirubin 0.1, Ammonia 16, Total Creatine Kinase 35, Creatine Kinase MB < 1.0, Creatine Kinase MB Relative Index 2.86, Troponin I < 0.02, Total Protein 7.2, Albumin 3.7, Albumin/Globulin Ratio 1.06, Thyroid Stimulating Hormone (TSH) 0.708 05/31/19 13:14: Lactic Acid Level 1.1 05/31/19 13:20: Osmolality 287 05/31/19 13:58: Urine Color YELLOW, Urine Appearance HAZY, Urine pH 8.0, Urine Specific [place] 1.011, Urine Protein NEGATIVE, Urine Glucose (UA) NEGATIVE, Urine Ketones TRACEH, Urine Blood NEGATIVE, Urine Nitrite NEGATIVE, Urine Bilirubin NEGATIVE, Urine Urobilinogen 0.2, Urine Leukocyte Esterase NEGATIVE, Urine WBC (Auto) 0, Urine RBC (Auto) 4H, Urine Hyaline Casts (Auto) 0, Urine Bacteria (Auto) NEGATIVE, Urine Squamous Epithelial Cells 0, Urine Mucus (Auto) SMALL, Urine Sperm (Auto) 05/31/19 16:08: Erythrocyte Sedimentation Rate 12, Troponin I < 0.02 05/31/19 20:09: Troponin I < 0.02 06/01/19 06:02: Nucleated Red Blood Cells % (auto) 0.0, Anion Gap 8, Glomerular Filtration Rate > 60.0, Blood Urea Nitrogen 17, Creatinine 0.94, Sodium Level 141, Potassium Level 3.4L, Chloride Level 108H, Carbon Dioxide Level 25, Calcium Level 8.2L CBC/BMP Laboratory Tests 05/31/19 13:06 Red Blood Count 4.39, Mean Corpuscular Volume 90.7, Mean Corpuscular Hemoglobin 30.8, Mean Corpuscular Hemoglobin Concent 33.9, Red Cell Distribution Width 13.8, Neutrophils (%) (Auto) 80.2 H, Lymphocytes (%) (Auto) 14.1 L, Monocytes (%) (Auto) 4.7, Eosinophils (%) (Auto) 0.2, Basophils (%) (Auto) 0.6, Neutrophils # (Auto) 6.8, Lymphocytes # (Auto) 1.2 L, Monocytes # (Auto) 0.4, Eosinophils # (Auto) 0.0, Basophils # (Auto) 0.1 06/01/19 06:02 Red Blood Count 3.48 L, Mean Corpuscular Volume 91.4, Mean Corpuscular Hemoglobin 31.0, Mean Corpuscular Hemoglobin Concent 34.0, Red Cell Distribution Width 14.2, Calcium Level 8.2 L Microbiology Microbiology 05/31/19 Blood Culture, Received Pending 05/31/19 Blood Culture, Received Pending RYANN SINGLETON DO Jun 01, 2019 07:14 AVRIL ALVAREZ MD Jun 02, 2019 13:03
[2019-06-01] MEDS ORDERED: POTASSIUM CHLORIDE 10 MEQ SR TABLET PO ONE (07:15)
[2019-06-01] MEDS: LACTOBACILLUS ACIDOPHILUS CAP (BACID) PO SCH (08:37)
[2019-06-01] MEDS: ENOXAPARIN 40 MG/0.4 ML SYRINGE (J1650) SC SCH (08:38)
[2019-06-01] MEDS: LISINOPRIL *2.5 MG* TAB PO SCH (08:40)
[2019-06-01] MEDS ORDERED: THIAMINE 100 MG TAB PO SCH (09:00)
[2019-06-01 10:00] VITALS: BP 133/61
[2019-06-01 11:15] VITALS: BP_SYST 128; BP_SYST 137; BP_DIAS 62; BP_DIAS 63; BP_DIAS 66
[2019-06-01 14:00] VITALS: BP 140/86
[2019-06-01] MEDS: ACETAMINOPHEN TAB 650MG DOSE (2X325MG) PO PRN (16:31)
[2019-06-01] MEDS: THIAMINE 100 MG TAB PO SCH (18:38)
[2019-06-01] MEDS ORDERED: IBUPROFEN 400 MG TAB PO PRN (19:15)
[2019-06-01 19:43] LABS: ERYTHROCYTE SEDIMENTATION RATE 13 mm/hr (0-30)
[2019-06-01 20:00] VITALS: BP_SYST 135; BP_SYST 138; BP_SYST 150; BP_DIAS 61; BP_DIAS 62
[2019-06-01] MEDS: DONEPEZIL 5 MG TAB PO SCH (20:02)
[2019-06-01 22:00] VITALS: BP 152/73
[2019-06-02] MEDS: ONDANSETRON 4MG/2ML VIAL (J2405) IV PRN ×2 (01:04→05:28)
[2019-06-02 04:09] VITALS: BP_SYST 167; BP_SYST 171; BP_DIAS 90; BP_DIAS 91; BP_DIAS 94
[2019-06-02 06:16] VITALS: BP 164/93
[2019-06-02 06:46] LABS: HEMATOCRIT 34.4 % (36.0-47.0); HEMOGLOBIN 11.6 g/dl (12.0-15.5); MEAN CORPUSCULAR HEMOGLOBIN 30.4 pg (27.0-33.0); MEAN CORPUSCULAR HGB CONC 33.7 g/dl (32.0-36.5); MEAN CORPUSCULAR VOLUME 90.1 fl (80.0-96.0); PLATELET COUNT, AUTOMATED 243 10^3/uL (150-450); RED BLOOD COUNT 3.82 10^6/uL (4.00-5.40); WHITE BLOOD COUNT 5.5 10^3/uL (4.0-10.0)
[2019-06-02 07:07] LABS: BLOOD UREA NITROGEN 10 MG/DL (7-18); CALCIUM LEVEL 9.1 MG/DL (8.8-10.2); CARBON DIOXIDE LEVEL 26 MEQ/L (21-32); CHLORIDE LEVEL 106 MEQ/L (98-107); CREATININE FOR GFR 0.82 MG/DL (0.55-1.30); GLOMERULAR FILTRATION RATE > 60.0 (>32); GLUCOSE, FASTING 95 MG/DL (70-100); POTASSIUM SERUM 3.6 MEQ/L (3.5-5.1); SODIUM LEVEL 139 MEQ/L (136-145)
[2019-06-02] MEDS: LISINOPRIL *2.5 MG* TAB PO SCH (07:56)
[2019-06-02] MEDS: ENOXAPARIN 40 MG/0.4 ML SYRINGE (J1650) SC SCH (08:00)
[2019-06-02] MEDS: LACTOBACILLUS ACIDOPHILUS CAP (BACID) PO SCH (08:03)
[2019-06-02] MEDS: THIAMINE 100 MG TAB PO SCH (08:03)
[2019-06-02] MEDS: MULTIVITAMINS/MINERALS THERAP 1 TAB PO SCH (08:03)
[2019-06-02] MEDS ORDERED: FLUBLOK(EGG FREE)(QUAD)INFLUENZA VACC 0.5ML SYRINGE (90682)18YRS&OLDER IM ONE (09:00)
[2019-06-02] MEDS: FOLIC ACID 1 MG TAB PO SCH (11:46)
[2019-06-02] MEDS: CYANOCOBALAMIN 500 MCG TAB PO SCH (11:46)
[2019-06-02 12:00] VITALS: BP_SYST 127; BP_SYST 131; BP_SYST 145; BP_DIAS 70; BP_DIAS 76; BP_DIAS 77
[2019-06-02] MEDS ORDERED: THIAMINE HCL 200 MG/2 ML VIAL (J3411) IM ONE (13:00)
--- NOTE | 2019-06-02 13:35 | IPNPDOC ---
Subjective Date Seen The patient was seen on 06/02/19. Subjective Chief Complaint/HPI Pt examined on bed; no major event was reported overnight. Upon going over ROS pt reported dysuria with urgency; denies frequency. Pt thought it is in the and thought she is in [facility]. Pt is able to answer her name correctly and able to carry the conversation. She denies any chest pain, N/V, lightheadedness, dizziness, palpitation. She is unable to recall if she ate dinner last night or having a BM last night. She denied having hallucinations and does not recall having visual hallucinations yesterday; she is able to recall her daughter and grand-daughter came visit her yesterday evening. General: Denies: Chills Constitutional: Denies: Chills, Fever ENT: Reports: Dysphagia Pulmonary: Denies: Dyspnea Cardiovascular: Denies: Chest Pain, Palpitations Gastrointestinal: Denies: Nausea, Vomiting Genitourinary: Reports: Dysuria, Other Symptoms (urgency); Denies: Frequency Psych: Reports: Mood Normal Objective Physical Examination General Exam: Positive: Alert, No Acute Distress, Other (no agitation/delirium noted) ENT Exam: Positive: Atraumatic Neck Exam: Positive: Supple Chest Exam: Positive: Clear to auscultation, Normal air movement; Negative: Rales, Rhonchi, Wheezing Heart Exam: Positive: Rate Normal, Regular Rhythm, Normal S1, Normal S2 Abdomen Exam: Positive: Normal bowel sounds, Soft; Negative: Tenderness Extremity Exam: Positive: Normal pulses; Negative: Swelling Neuro Exam: Positive: Normal Speech, Normal Tone, Other (resting tremor noted in b/l hands) Psych Exam: Positive: Mood NL, Oriented x 3; Negative: Memory Intact Assessment /Plan Assessment 1. Syncope likely 2/2 vasovagal episode vs situational vs arrhythmia/cardiogenic causes -remote tele; EEG pending -Trop series cont to be<0.02 -PT ordered -Fall precaution 2. Medical hx of HTN; episodes of severe asymptomatic hypertension which had resolved -Pt blood pressure noted to be elevated with SBP in the 190s -Not on outpt BP med reporting she was told outpatient that she does not require BP meds due to stable BP -Nausea prior to admission. Zofran PRN -On Lisinopril 5mg QD 3. Chronic diarrhea -reported diffuse diarrhea for months currently still present but further info not able to be obtained -1 BM since admission -Cont home med probiotics; GI panel pending -Nausea prior to admission. Zofran PRN -EPEC GI infection in 04/2019 4. Dysphagia - reported chronic dysphagia. It was noted that she also had some weight loss over time - swallow eval recommends barium swallow study; diet consult recommends ensure enlive TID w/ meals 5.Normocytic anemia likely 2/2 hemodilution -stable compared to yesterday -Pt reported never having colonoscopy; daughter reported colonoscopy years ago without significant abnormality she remembered -occult blood neg 6. Hx of temporal arteritis -Hx of temporal arteritis reported to be s/p biopsy; received steroid tx 2 years ago -reported headache in b/l temporal region. Tylenol PRN for now -ESR cont to be wnl 7. Chronic progressive weight loss -pt reported losing 23 lbs of weight loss due to decreased appetite and dysphagia -Pt reported she never had colonoscopy; daughter reported colonoscopy years ago without significant abnormality she remembered -Bedside swallow eval recommends puree diet. Nutritional assessment recommends ensure enlive TID; ordered. -Consider outpt workup for progressive weight loss such as endoscope 8. Likely Lewy body dementia -It was noted pt had some confusion / night; pt does not recall confusion events. Later discussion with daughter reporting that she has been having hallucinations since . Pt's daughter reported no hx of dementia while upon admission pt's [id number] reported having dementia -memory loss w/o delirium; resting tremor noted. D/C oxybutynin -Cont outpt med Donezepil; consider f/u outpt -EEG also pending 9. Urge incontinence -pt reported medical hx of urge incontinence -d/c home med oxybutynin -pt reported dysuria and urgency today thus UA w/ reflex ordered 10. General deconditioning likely due to advanced age and/or imbalanced nutrition -Start ensure enlive TID per nutrition recommendation; -fall precaution I saw and evaluated the patient. I agree with the findings and plan of care as documented in the above note Plan/VTE VTE Prophylaxis Ordered?: Yes VS, I&O, 24H, Fishbone Vital Signs/I&O Vital Signs Date Time Temp Pulse Resp B/P (MAP) Pulse Ox O2 Delivery O2 Flow Rate FiO2 06/02/19 07:57 106 167/91 06/02/19 06:00 98.3 20 96 05/31/19 12:46 Room Air I&O- Last 24 Hours up to 6 AM 06/02/19 05:59 Intake Total 1970 ml Output Total 900 ml Balance 1070 ml Laboratory Data 24H LABS Laboratory Tests 2 06/02/19 06:05: Nucleated Red Blood Cells % (auto) 0.0, Anion Gap 7L, Glomerular Filtration Rate > 60.0, Blood Urea Nitrogen 10, Creatinine 0.82, Sodium Level 139, Potassium Level 3.6, Chloride Level 106, Carbon Dioxide Level 26, Calcium Level 9.1 CBC/BMP Laboratory Tests 06/02/19 06:05 Red Blood Count 3.82 L, Mean Corpuscular Volume 90.1, Mean Corpuscular Hemoglobin 30.4, Mean Corpuscular Hemoglobin Concent 33.7, Red Cell Distribution Width 13.9, Calcium Level 9.1 Microbiology Microbiology 05/31/19 Blood Culture - Preliminary, Resulted No growth after 24 hours . All specim... 05/31/19 Blood Culture - Preliminary, Resulted No growth after 24 hours . All specim... 06/02/19 Stool Occult Blood (RITU) - Final, Complete RYANN SINGLETON DO Jun 02, 2019 13:35 AVRIL ALVAREZ MD Jun 04, 2019 13:47
[2019-06-02 13:49] VITALS: BP 134/72
[2019-06-02 14:00] VITALS: BP 134/72
[2019-06-02] MEDS: DONEPEZIL 5 MG TAB PO SCH (20:06)
[2019-06-03 06:00] VITALS: BP_SYST 140; BP_SYST 141; BP_DIAS 74; BP_DIAS 84
[2019-06-03 06:28] LABS: HEMATOCRIT 34.5 % (36.0-47.0); HEMOGLOBIN 11.8 g/dl (12.0-15.5); MEAN CORPUSCULAR HEMOGLOBIN 30.9 pg (27.0-33.0); MEAN CORPUSCULAR HGB CONC 34.2 g/dl (32.0-36.5); MEAN CORPUSCULAR VOLUME 90.3 fl (80.0-96.0); PLATELET COUNT, AUTOMATED 247 10^3/uL (150-450); RED BLOOD COUNT 3.82 10^6/uL (4.00-5.40); WHITE BLOOD COUNT 6.7 10^3/uL (4.0-10.0)
[2019-06-03 06:54] LABS: BLOOD UREA NITROGEN 13 MG/DL (7-18); CALCIUM LEVEL 9.1 MG/DL (8.8-10.2); CARBON DIOXIDE LEVEL 29 MEQ/L (21-32); CHLORIDE LEVEL 104 MEQ/L (98-107); CREATININE FOR GFR 0.87 MG/DL (0.55-1.30); GLOMERULAR FILTRATION RATE > 60.0 (>32); GLUCOSE, FASTING 92 MG/DL (70-100); POTASSIUM SERUM 3.8 MEQ/L (3.5-5.1); SODIUM LEVEL 138 MEQ/L (136-145)
[2019-06-03] MEDS: FOLIC ACID 1 MG TAB PO SCH (10:11)
[2019-06-03] MEDS: MULTIVITAMINS/MINERALS THERAP 1 TAB PO SCH (10:11)
[2019-06-03] MEDS: CYANOCOBALAMIN 500 MCG TAB PO SCH (10:11)
[2019-06-03] MEDS: LACTOBACILLUS ACIDOPHILUS CAP (BACID) PO SCH (10:11)
[2019-06-03] MEDS: LISINOPRIL 5 MG TAB PO SCH (10:12)
[2019-06-03] MEDS: THIAMINE 100 MG TAB PO SCH (10:12)
[2019-06-03] MEDS: ENOXAPARIN 40 MG/0.4 ML SYRINGE (J1650) SC SCH (10:13)
[2019-06-03 14:00] VITALS: BP 130/70
--- NOTE | 2019-06-03 14:38 | IPNPDOC ---
Date Seen The patient was seen on 06/03/19. Progress Note SUBJECTIVE: Patient tells me she is doing well today she tells me she has a stiff neck for sleeping in the bed but otherwise she denies lightheadedness dizziness palpitations nausea vomiting OBJECTIVE PHYSICAL EXAMINATION: VITAL SIGNS: Please see below. GENERAL: Very frail elderly female laying in bed awake alert no acute distress HEENT: Cranial nerves appear grossly intact she is bitemporal wasting CARDIOVASCULAR: S1-S2 she is not tachycardic, exam. RESPIRATORY: Clear to auscultation bilaterally. ABDOMINAL: Scaphoid abdomen bowel sounds present abdomen soft EXTREMITIES: No clubbing cyanosis or edema NEUROLOGICAL: Nonfocal exam PSYCHOLOGICAL: Appropriate LABORATORY DATA, IMAGING STUDIES, MICROBIOLOGY: Please see below. DVT prophylaxis ordered?: Lovenox ASSESSMENT AND PLAN: This is a 84-year-old female with likely vasovagal syncope and dysphasia. PROBLEMS: 1. Syncope: Patient did not have any palpitations or cardiac prodrome she has frequent urinary urgency and was rushing to the bathroom while in the bathroom she felt nauseous and was asked to try to induce vomiting when she passed out. She was monitored on telemetry and had no significant events orthostatics were negative otherwise workup thus far has been fairly negative. She did have an EEG the results of which are currently pending 2. Dysphagia: Unclear etiology . Well has been ordered and she is scheduled for a cookie swallow tomorrow morning given her weight loss and her malnutrition certainly of concern for achalasia or esophageal stricture. For the time being continue with pured diet and ensure live 3 times a day 3. Diarrhea: She complains of some chronicity to this although she is an unreli able historian given her dementia. A GI PCR panel has been ordered she has not had any reported loose stool since hospitalized. 4. Dementia: Etiology is not immediately clear she does not exhibit any resting tremor she did have some hallucinations previously she is on Ditropan as well since been stopped as it may be exacerbating her symptoms. There certainly suspicion for Alzheimer's type dementia and would recommend further outpatient testing as this is a fairly new diagnosis for the last several months. She is on donepezil 5. Urge incontinence: She is at her baseline no change in any of her urinary symptoms which have been fairly chronic 6. Hypertension: Controlled with lisinopril DISPOSITION: Pending swallow eval PT OT. VS, I&O, 24H, [facility] Vital Signs/I&O Vital Signs Date Time Temp Pulse Resp B/P (MAP) Pulse Ox O2 Delivery O2 Flow Rate FiO2 06/03/19 10:12 143/79 06/03/19 06:00 74 79 97 06/02/19 14:00 97.9 20 98 05/31/19 12:46 Room Air I&O- Last 24 Hours up to 6 AM 06/03/19 05:59 Intake Total 1260 ml Output Total 200 ml Balance 1060 ml Laboratory Data 24H LABS Laboratory Tests 2 06/02/19 21:58: Urine Color YELLOW, Urine Appearance CLEAR, Urine pH 6.0, Urine Specific [place] 1.003, Urine Protein NEGATIVE, Urine Glucose (UA) NEGATIVE, Urine Ketones NEGATIVE, Urine Blood NEGATIVE, Urine Nitrite NEGATIVE, Urine Bilirubin NEGATIVE, Urine Urobilinogen 0.2, Urine Leukocyte Esterase NEGATIVE, Urine WBC (Auto) 0, Urine RBC (Auto) 0, Urine Hyaline Casts (Auto) 0, Urine Bacteria (Auto) 1+H, Urine Squamous Epithelial Cells 0, Urine Sperm (Auto) 06/03/19 06:04: Nucleated Red Blood Cells % (auto) 0.0, Anion Gap 5L, Glomerular Filtration Rate > 60.0, Blood Urea Nitrogen 13, Creatinine 0.87, Sodium Level 138, Potassium Level 3.8, Chloride Level 104, Carbon Dioxide Level 29, Calcium Level 9.1 CBC/BMP Laboratory Tests 06/03/19 06:04 Red Blood Count 3.82 L, Mean Corpuscular Volume 90.3, Mean Corpuscular Hemoglobin 30.9, Mean Corpuscular Hemoglobin Concent 34.2, Red Cell Distribution Width 13.9, Calcium Level 9.1 Microbiology Microbiology 05/31/19 Blood Culture - Preliminary, Resulted No Growth after 48 hours. All Specime... 05/31/19 Blood Culture - Preliminary, Resulted No Growth after 72 hours. All specime... 06/02/19 Stool Occult Blood (RITU) - Final, Complete AVRIL ALVAREZ MD Jun 03, 2019 14:38
[2019-06-03] MEDS: DONEPEZIL 5 MG TAB PO SCH (20:20)
[2019-06-03 22:00] VITALS: BP 143/75
[2019-06-04 06:00] VITALS: BP 144/77
[2019-06-04 06:49] LABS: HEMATOCRIT 34.4 % (36.0-47.0); HEMOGLOBIN 11.6 g/dl (12.0-15.5); MEAN CORPUSCULAR HEMOGLOBIN 30.4 pg (27.0-33.0); MEAN CORPUSCULAR HGB CONC 33.7 g/dl (32.0-36.5); MEAN CORPUSCULAR VOLUME 90.3 fl (80.0-96.0); PLATELET COUNT, AUTOMATED 252 10^3/uL (150-450); RED BLOOD COUNT 3.81 10^6/uL (4.00-5.40); WHITE BLOOD COUNT 6.4 10^3/uL (4.0-10.0)
[2019-06-04 07:17] LABS: BLOOD UREA NITROGEN 20 MG/DL (7-18); CALCIUM LEVEL 8.9 MG/DL (8.8-10.2); CARBON DIOXIDE LEVEL 30 MEQ/L (21-32); CHLORIDE LEVEL 103 MEQ/L (98-107); CREATININE FOR GFR 0.88 MG/DL (0.55-1.30); GLOMERULAR FILTRATION RATE > 60.0 (>32); GLUCOSE, FASTING 81 MG/DL (70-100); POTASSIUM SERUM 3.7 MEQ/L (3.5-5.1); SODIUM LEVEL 139 MEQ/L (136-145)
[2019-06-04] MEDS: MULTIVITAMINS/MINERALS THERAP 1 TAB PO SCH (08:01)
[2019-06-04] MEDS: LACTOBACILLUS ACIDOPHILUS CAP (BACID) PO SCH (08:01)
[2019-06-04] MEDS: FOLIC ACID 1 MG TAB PO SCH (08:01)
[2019-06-04] MEDS: THIAMINE 100 MG TAB PO SCH (08:01)
[2019-06-04] MEDS: CYANOCOBALAMIN 500 MCG TAB PO SCH (08:02)
[2019-06-04] MEDS: LISINOPRIL 5 MG TAB PO SCH (08:02)
[2019-06-04] MEDS: ENOXAPARIN 40 MG/0.4 ML SYRINGE (J1650) SC SCH (08:02)
[2019-06-04] MEDS ORDERED: VARIBAR PUDDING 40% w/v 230ML TUBE As Ordered ONE (10:52)
[2019-06-04] MEDS ORDERED: VARIBAR NECTAR 40% w/v 240ML SUSP BTL As Ordered ONE (10:52)
[2019-06-04] MEDS ORDERED: E-Z-PAQUE 96% w/w SUSP 176GM BTL As Ordered ONE (10:53)
[2019-06-04] MEDS ORDERED: BARIUM SULFATE 700 MG TABLET (E-Z-DISK) As Ordered ONE (10:53)
[2019-06-04 14:00] VITALS: BP 135/65
--- NOTE | 2019-06-04 16:57 | IPNPDOC ---
Date Seen The patient was seen on 06/04/19. Progress Note SUBJECTIVE: Patient was seen and examined this morning. She currently denies any new complaints. She denies any dizziness or lightheadedness OBJECTIVE PHYSICAL EXAMINATION: VITAL SIGNS: Please see below. GENERAL: Awake, alert, and oriented. Appears in no acute distress. Lying comfortably in bed HEENT: Atraumatic normocephalic. eyes are nonicteric. trachea is midline CARDIOVASCULAR: Normal S1, S2. Regular rate and rhythm. No clicks rubs, or murmurs RESPIRATORY: Clear vesicular breath sounds bilaterally with good respiratory effort. No wheezes, rhonchi, or rales ABDOMINAL: Scaphoid abdomen. Normoactive bowel sounds. No tenderness to palpation EXTREMITIES: No edema. PT and radial pulses 2+ bilaterally NEUROLOGICAL: No focal neurological deficits PSYCHOLOGICAL: Mood and affect appear appropriate LABORATORY DATA, IMAGING STUDIES, MICROBIOLOGY: Please see below. DVT prophylaxis ordered?: Lovenox ASSESSMENT AND PLAN: Patient is an 84 year old female with vasovagal syncope and dysphagia PROBLEMS: 1. Syncopal Episode -Patient likely had micturition syncope. She is currently on telemetry without any arrythmias. Her EEG is currently pending. 2. Dysphagia -Patient has an unclear etiology to her dysphagia. She has speech therapy ordered as well as cookie swallow pending. Patient is currently on a pureed and ensure diet 3. Diarrhea -Patient has not had any loose stools since hospitalization 4. Dementia -Patient is continued on Donepezil 5. Urge incontinence -Patient denies any change in baseline 6. Hypertension -Controlled with lisinopril will continue DISPOSITION: . VS, I&O, 24H, [facility] Vital Signs/I&O Vital Signs Date Time Temp Pulse Resp B/P (MAP) Pulse Ox O2 Delivery O2 Flow Rate FiO2 06/04/19 14:00 97.2 75 18 135/65 (88) 99 05/31/19 12:46 Room Air I&O- Last 24 Hours up to 6 AM 06/04/19 05:59 Intake Total 900 ml Output Total 200 ml Balance 700 ml Laboratory Data 24H LABS Laboratory Tests 2 06/04/19 06:22: Nucleated Red Blood Cells % (auto) 0.0, Anion Gap 6L, Glomerular Filtration Rate > 60.0, Blood Urea Nitrogen 20#H, Creatinine 0.88, Sodium Level 139, Potassium L evel 3.7, Chloride Level 103, Carbon Dioxide Level 30, Calcium Level 8.9 CBC/BMP Laboratory Tests 06/04/19 06:22 Red Blood Count 3.81 L, Mean Corpuscular Volume 90.3, Mean Corpuscular Hemoglobin 30.4, Mean Corpuscular Hemoglobin Concent 33.7, Red Cell Distribution Width 14.0, Calcium Level 8.9 Microbiology Microbiology 05/31/19 Blood Culture - Preliminary, Resulted No Growth after 72 hours. All specime... 05/31/19 Blood Culture - Preliminary, Resulted No Growth after 72 hours. All specime... 06/02/19 Stool Occult Blood (RITU) - Final, Complete ELVIS GONZALEZ DO Jun 04, 2019 16:57
[2019-06-04] MEDS: DONEPEZIL 5 MG TAB PO SCH (20:22)
[2019-06-04 22:00] VITALS: BP 135/66
[2019-06-05 06:00] VITALS: BP 132/70
[2019-06-05 06:42] LABS: HEMATOCRIT 34.3 % (36.0-47.0); HEMOGLOBIN 11.4 g/dl (12.0-15.5); MEAN CORPUSCULAR HEMOGLOBIN 30.5 pg (27.0-33.0); MEAN CORPUSCULAR HGB CONC 33.2 g/dl (32.0-36.5); MEAN CORPUSCULAR VOLUME 91.7 fl (80.0-96.0); PLATELET COUNT, AUTOMATED 259 10^3/uL (150-450); RED BLOOD COUNT 3.74 10^6/uL (4.00-5.40); WHITE BLOOD COUNT 6.7 10^3/uL (4.0-10.0)
--- NOTE | 2019-06-05 06:46 | EEG ---
DATE OF EE06/01/2019 REFERRING PHYSICIAN: Dr. Paige Brown DIAGNOSIS: Syncope. EEG NUMBER: [id number] HISTORY: Patient is an 84-year-old woman with a history of temporal arteritis and was admitted at [facility] due to syncope. This EEG was done to rule out epileptic potential. She is currently taking donepezil, Lovenox, labetalol, lisinopril, amlodipine, etc. TECHNICAL DESCRIPTION: This digital EEG was recorded by 21 scalp, ear and two EKG electrodes and was reviewed in bipolar and referential montages following reformatting in 10-20 international electrode placement system. INTERPRETATION: The patient was noted to be in awake and drowsy states during this EEG. Resting awake background rhythm consisted of 9 Hz alpha activity measuring 15-40 microvolts in amplitude which was symmetric and reactive to eye opening. Anteriorly low voltage and mixed frequency activity was noted. Attenuation of posterior dominant rhythm was seen during transition into drowsiness. Stage 1 and 2 sleep were reviewed and symmetric bilaterally. Hyperventilation could not be performed. Photic stimulation remained unremarkable. EKG revealed normal sinus rhythm. No focal, lateralizing or epileptiform abnormalities were seen. No clinical or electrographic seizures were recorded. CONCLUSION: This EEG in awake, drowsy states, stage 1 and 2 sleep is within normal limits.
[2019-06-05 07:03] LABS: CALCIUM LEVEL 9.2 MG/DL (8.8-10.2); CREATININE FOR GFR 1.02 MG/DL (0.55-1.30); GLOMERULAR FILTRATION RATE 55.1 (>32)
[2019-06-05] MEDS: LACTOBACILLUS ACIDOPHILUS CAP (BACID) PO SCH (09:12)
[2019-06-05] MEDS: ENOXAPARIN 40 MG/0.4 ML SYRINGE (J1650) SC SCH (09:12)
[2019-06-05] MEDS: CYANOCOBALAMIN 500 MCG TAB PO SCH (09:12)
[2019-06-05] MEDS: FOLIC ACID 1 MG TAB PO SCH (09:13)
[2019-06-05 09:15] VITALS: BP 138/64
[2019-06-05] MEDS: LISINOPRIL 5 MG TAB PO SCH (09:15)
[2019-06-05] MEDS: THIAMINE 100 MG TAB PO SCH (09:16)
[2019-06-05] MEDS: MULTIVITAMINS/MINERALS THERAP 1 TAB PO SCH (09:16)
--- NOTE | 2019-06-05 09:51 | REP ---
COOKIE SWALLOW The procedure was performed under the direct supervision of Dr. Alicea. The procedure was performed with Zelda Ayon from speech pathology present. 5 ml aliquots of thin, pudding, soft, fruit and a barium pill were administered. There is no evidence of penetration or aspiration. The detailed report of this examination will be provided by speech pathology. 1.3 minutes of fluoroscopy time was utilized for this procedure. Electronically Signed by GINNY Pena 06/04/2019 03:53 P Electronically Signed by Kel Alicea MD 06/05/2019 09:42 A
--- NOTE | 2019-06-05 12:43 | DS.PDOC ---
Discharge Summary General Date of Admission Jun 02, 2019 at 12:36 Date of Discharge 06/05/19 Discharge Summary Chief complaint Syncopal episode Final diagnosis Vasovagal syncopal Urge incontinence Dementia Diarrhea History of present illness and Hospital course This is 84-year-old female who was admitted to the hospital because of vasovagal related episode. She further nausea and had this event. PT, OT saw this patient and recommended home with home health. The patient also was having some issues with dysphagia for which speech and swallow evaluated the patient and cleared with out any aspirations. The patient got a CT scan of the head which came out to within normal. The patient also had EKG done which came out to be sinus rhythm with no arrhythmias. The patient did not have any events on telemetry. The patient is medically optimized and can be discharged home. PHYSICAL EXAMINATION: VITAL SIGNS: Please see below. GENERAL: Awake, alert, and oriented. Appears in no acute distress. Lying comfortably in bed HEENT: Atraumatic normocephalic. eyes are nonicteric. trachea is midline CARDIOVASCULAR: Normal S1, S2. Regular rate and rhythm. No clicks rubs, or murmurs RESPIRATORY: Clear vesicular breath sounds bilaterally with good respiratory effort. No wheezes, rhonchi, or rales ABDOMINAL: Scaphoid abdomen. Normoactive bowel sounds. No tenderness to palpation EXTREMITIES: No edema. PT and radial pulses 2+ bilaterally NEUROLOGICAL: No focal neurological deficits PSYCHOLOGICAL: Mood and affect appear appropriate LABORATORY DATA, IMAGING STUDIES, MICROBIOLOGY. Dictations. As per discharge reconciliation medication list Activity as tolerated Diet. 2 g sodium diet Follow-up appointments. PCP in 1 week, Condition on discharge. Patient is medically optimized for discharge Discharge disposition: Home Total time spent on this discharge including coordination of care, review of chart documentation and extubation contact is around 35 minutes Vital Signs/I&Os Vital Signs Date Time Temp Pulse Resp B/P (MAP) Pulse Ox O2 Delivery O2 Flow Rate FiO2 06/05/19 09:15 138/64 06/05/19 06:00 97.8 78 17 96 05/31/19 12:46 Room Air I&O- Last 24 Hours up to 6 AM 06/05/19 06:00 Intake Total 1640 ml Output Total 700 ml Balance 940 ml Laboratory Data Labs 24H Laboratory Tests 2 06/05/19 06:17: Nucleated Red Blood Cells % (auto) 0.0, Anion Gap 4L, Glomerular Filtration Rate 55.1, Blood Urea Nitrogen 15, Creatinine 1.02, Sodium Level 139, Potassium Level 4.0, Chloride Level 105, Carbon Dioxide Level 30, Calcium Level 9.2 CBC/BMP Laboratory Tests 06/05/19 06:17 Red Blood Count 3.74 L, Mean Corpuscular Volume 91.7, Mean Corpuscular Hemoglobin 30.5, Mean Corpuscular Hemoglobin Concent 33.2, Red Cell Distribution Width 14.2, Calcium Level 9.2 Microbiology Microbiology 05/31/19 Blood Culture - Preliminary, Resulted No Growth after 72 hours. All specime... 05/31/19 Blood Culture - Preliminary, Resulted No Growth after 72 hours. All specime... 06/02/19 Stool Occult Blood (RITU) - Final, Complete Discharge Medications Scheduled Acetaminophen/Diphenhydramine (Acetaminophen Pm Caplet) 1 Each Tablet, 2 TAB PO QHS, (Reported) Bifidobacterium Infantis (Align) 4 Mg Capsule, 1 CAP PO QPM, (Reported) Calcium Carbonate/Vitamin D3 (Calcium 600-Vit D3 200 Tablet) 1 Tab Tab, 1 TAB PO QPM, (Reported) Citalopram Hydrobromide (Citalopram HBr) 40 Mg Tablet, 40 MG PO QPM, (Reported) Donepezil HCl (Donepezil HCl) 10 Mg Tablet, 10 MG PO QPM, (Reported) Oxybutynin Chloride (Oxybutynin Chloride ER) 5 Mg Tab, 5 MG PO QPM, (Reported) Scheduled PRN Acetaminophen (Acetaminophen) 500 Mg Tab, 500 MG PO Q4H PRN for PAIN, (Reported) Docusate Sodium (Docusate Sodium) 100 Mg Capsule, 100 MG PO DAILY PRN for CONSTIPATION, (Reported) Allergies Coded Allergies: No Known Allergies (Unverified , 02/10/15) CAMRYN PHAN MD Jun 05, 2019 12:43
[2019-06-05 14:00] VITALS: BP 120/68
== END 2019-06-05 15:06 | disposition home health service (06) | DRG 312 ==
LOC: M ED 12:32 → EDBD 12:32 → M ED INP 12:33 → M MSPAV 16:26 → OBSVTOIN 06-02 12:36
PROVIDERS: ADMIT Internal Medicine; ATTEND Internal Medicine
DX: R55 Syncope and collapse (principal); I12.9 Hypertensive chronic kidney disease with stage 1 through stage 4 chronic kidney disease, or unspecified chronic kidney disease; N39.41 Urge incontinence; Z87.891 Personal history of nicotine dependence; K52.9 Noninfective gastroenteritis and colitis, unspecified; R13.10 Dysphagia, unspecified; R63.4 Abnormal weight loss; N18.3 Chronic kidney disease, stage 3 (moderate); R54 Age-related physical debility; G30.9 Alzheimer's disease, unspecified; F02.80 Dementia in other diseases classified elsewhere, unspecified severity, without behavioral disturbance, psychotic disturbance, mood disturbance, and anxiety; Z79.899 Other long term (current) drug therapy

== ENCOUNTER 2020-11-26 12:22 | Emergency (ER) | payer MEDICARE, BC, OTHER ==
[~2020-11-26] VITALS: Ht 152.4 cm; Wt 43.5 kg
[~2020-11-26 12:22] MED LIST changes: +ACET25TA12 PO; +ALIG4CAP PO; +CALC-212 PO; -CALC600T7 PO; +DOCU100C16 PO; +DONE10TA90 PO; -LISI-538 PO; +LISI20TA33 PO; +OXYB-54 PO; -OXYB5TAB2 PO
--- NOTE | 2020-11-26 13:18 | REP ---
INDICATION: Altered Mental Status. COMPARISON: 05/31/2019 TECHNIQUE: CT of the brain without IV contrast. FINDINGS: There is no acute hemorrhage. There is no mass effect or midline shift. The cortical stripe is maintained. There is diffuse atrophy, unchanged. No change from the prior study. IMPRESSION: There is no acute hemorrhage, mass effect or midline shift. There is diffuse atrophy. No change from the comparison study. <Electronically signed by Kel Buchanan > 11/26/20 [id number]
--- NOTE | 2020-11-26 13:26 | REP ---
INDICATION: Altered Mental Status. COMPARISON: Comparison chest x-ray May 31, 2019. TECHNIQUE: Portable upright AP chest radiograph. FINDINGS: The lungs are well inflated and free of infiltrate. Pleural angles are sharp. Heart size is normal. Pulmonary vasculature is not increased. Monitoring electrodes are seen. The thoracic aorta is tortuous. IMPRESSION: No active disease. <Electronically signed by Ronnie Murphy > 11/26/20 [id number]
[2020-11-26 13:45] LABS: VENOUS HCO3 29.7 MEQ/L (23.0-27.0); VENOUS O2 SATURATION 78.7 % (60.0-80.0); VENOUS PARTIAL PRESSURE CO2 54.4 mmHg (38.0-50.0); VENOUS PARTIAL PRESSURE O2 44.3 mmHg (30.0-50.0); VENOUS PH 7.355 UNITS (7.330-7.430); VENOUS STANDARD HCO3 26.7 MEQ/L; VENOUS TOTAL CO2 31.4 MEQ/L (24.0-28.0)
[2020-11-26 13:58] LABS: BASO # 0.1 10^3/uL (0.0-0.2); BASO % 0.8 % (0.0-1.0); EOS # 0.2 10^3/uL (0.0-0.5); EOS % 2.4 % (0.0-3.0); HEMATOCRIT 37.2 % (36.0-47.0); HEMOGLOBIN 12.3 g/dl (12.0-15.5); LYMPH # 1.6 10^3/uL (1.5-5.0); LYMPH % 25.5 % (24.0-44.0); MEAN CORPUSCULAR HEMOGLOBIN 31.2 pg (27.0-33.0); MEAN CORPUSCULAR HGB CONC 33.1 g/dl (32.0-36.5); MEAN CORPUSCULAR VOLUME 94.4 fl (80.0-96.0); MONO # 0.5 10^3/uL (0.0-0.8); MONO % 7.6 % (2.0-8.0); NEUTROPHILS % 63.2 % (36.0-66.0); PLATELET COUNT, AUTOMATED 250 10^3/uL (150-450); RED BLOOD COUNT 3.94 10^6/uL (4.00-5.40); WHITE BLOOD COUNT 6.3 10^3/uL (4.0-10.0)
[2020-11-26 14:13] LABS: OSMOLALITY SERUM 291 MOSM/KG (280-301)
[2020-11-26 14:24] LABS: ALBUMIN 3.2 GM/DL (3.2-5.2); ALT/SGPT 57 U/L (12-78); BILIRUBIN,DIRECT 0.1 MG/DL (0.0-0.2); BILIRUBIN,TOTAL 0.4 MG/DL (0.2-1.0); BLOOD UREA NITROGEN 23 MG/DL (7-18); CALCIUM LEVEL 9.3 MG/DL (8.8-10.2); CARBON DIOXIDE LEVEL 29 MEQ/L (21-32); CHLORIDE LEVEL 106 MEQ/L (98-107); CK-MB VALUE MASS < 1.0 NG/ML (<3.6); CPK CREATINE PHOSPHOKINASE 35 U/L (26-192); CREATININE FOR GFR 0.88 MG/DL (0.55-1.30); GLOMERULAR FILTRATION RATE > 60.0 (>32); GLUCOSE, FASTING 92 MG/DL (70-100); MB/CK RELATIVE INDEX 2.86 (< OR =4); POTASSIUM SERUM 4.3 MEQ/L (3.5-5.1); SODIUM LEVEL 139 MEQ/L (136-145); TOTAL PROTEIN 6.2 GM/DL (6.4-8.2); TROPONIN I < 0.02 NG/ML (< 0.10)
--- NOTE | 2020-11-26 17:36 | REPVR ---
PROCEDURE INFORMATION: Exam: MR Head Without Contrast Exam date and time: 11/26/2020 5:01 PM Age: 85 years old Clinical indication: Speech disturbance; Aphasia TECHNIQUE: Imaging protocol: MR of the head without contrast. COMPARISON: CT Head without contrast 11/26/2020 12:59 PM FINDINGS: Brain: Nonspecific T2/FLAIR hyperintensities of the periventricular and deep subcortical white matter, most likely secondary to chronic small vessel ischemic change. No intracranial hemorrhage or extra-axial fluid collection. No evidence of mass effect or midline shift. No restricted diffusion to suggest acute infarct. Cerebral ventricles: Prominence of the ventricles and sulci, likely attributed to parenchymal volume loss. Bones/joints: Unremarkable. Paranasal sinuses: Normal as visualized. No acute sinusitis. Mastoid air cells: No mastoid effusion. Orbital cavity: Unremarkable. Soft tissues: Unremarkable. IMPRESSION: 1. No acute intracranial pathology. 2. Chronic findings, as above. Electronically signed by: Wilfredo Gaytan On 11/26/2020 17:36:10 PM
--- NOTE | 2020-11-26 17:37 | REPVR ---
PROCEDURE INFORMATION: Exam: MR Angiogram Head Without Contrast, Arteries Exam date and time: 11/26/2020 5:01 PM Age: 85 years old Clinical indication: Speech disturbance; Aphasia TECHNIQUE: Imaging protocol: MR angiogram head without contrast. Exam focused on the arteries. COMPARISON: CT Head without contrast 11/26/2020 12:59 PM FINDINGS: ANTERIOR CIRCULATION: Right internal carotid artery: Intracranial segment is patent with no significant stenosis. No aneurysm. Right middle cerebral artery: No occlusion or significant stenosis. No aneurysm. Right anterior cerebral artery: No occlusion or significant stenosis. No aneurysm. Left internal carotid artery: Intracranial segment is patent with no significant stenosis. No aneurysm. Left middle cerebral artery: No occlusion or significant stenosis. No aneurysm. Left anterior cerebral artery: No occlusion or significant stenosis. No aneurysm. POSTERIOR CIRCULATION: Right vertebral artery: No occlusion or significant stenosis. No aneurysm. Left vertebral artery: No occlusion or significant stenosis. No aneurysm. Basilar artery: No occlusion or significant stenosis. No aneurysm. Right posterior cerebral artery: No occlusion or significant stenosis. No aneurysm. Left posterior cerebral artery: No occlusion or significant stenosis. No aneurysm. IMPRESSION: No MRA evidence of intracranial arterial occlusion or significant stenosis. Electronically signed by: Wilfredo Gaytan On 11/26/2020 17:37:11 PM
[2020-11-26] MEDS ORDERED: CIPR250T26 PO (17:54)
[2020-11-26 18:30] VITALS: BP 144/74
--- NOTE | 2020-11-27 01:00 | ECGEPIP ---
[facility] - ED Test Date: 2020-11-26 Pat Name: LELO WADE Department: Room: - Gender: Female Senior Program Analyst: : [id number] Requested By: Mary Srivastava Order Number: [id number] Reading MD: Jose Godfrey Measurements Intervals [place] Rate: 83 P: 65 NH: 188 QRS: 1 QRSD: 92 T: 49 QT: 384 QTc: 451 Interpretive Statements Normal sinus rhythm NSTTW ABNORMALITY(S) SIMILAR TO 05/31/19 Electronically Signed on 11-27-2020 1:00:27 EDT by Jose Godfrey
== END 2020-11-26 18:45 | disposition home or self-care (01) ==
LOC: M ED 12:22
DX: R41.0 Disorientation, unspecified (principal); I10 Essential (primary) hypertension; E78.5 Hyperlipidemia, unspecified; F33.9 Major depressive disorder, recurrent, unspecified; Z87.891 Personal history of nicotine dependence; Z79.899 Other long term (current) drug therapy; Z86.69 Personal history of other diseases of the nervous system and sense organs

== ENCOUNTER 2021-05-15 14:26 | Inpatient (IN) | payer MEDICARE, BC, OTHER ==
[~2021-05-15] VITALS: Ht 149.9 cm; Wt 45.1 kg
[~2021-05-15 14:26] MED LIST changes: +CIPR250T26 PO
[2021-05-15] MEDS ORDERED: NS 1,000 ML IV ONE (17:00)
--- NOTE | 2021-05-15 17:07 | REPVR ---
PROCEDURE INFORMATION: Exam: CT Head Without Contrast Exam date and time: 05/15/2021 4:46 PM Age: 86 years old Clinical indication: Injury or trauma; Fall; Blunt trauma (contusions or hematomas); Additional info: Hit head TECHNIQUE: Imaging protocol: Computed tomography of the head without contrast. Radiation optimization: All CT scans at this facility use at least one of these dose optimization techniques: automated exposure control; mA and/or kV adjustment per patient size (includes targeted exams where dose is matched to clinical indication); or iterative reconstruction. COMPARISON: MRI-Brain without Contrast 11/26/2020 4:28 PM FINDINGS: Brain: There are global involutional changes of the brain which are in keeping with the patient's age. Periventricular hypodensities are nonspecific but most likely reflect chronic microvascular ischemic disease. There is no acute intracranial hemorrhage or abnormal extra-axial fluid collection identified. There is no intracranial mass effect or shift of midline structures. The mejia-white differentiation is preserved throughout. Cerebral ventricles: There is no sulcal or ventricular effacement. The basilar cisterns are open. No hydrocephalus. Paranasal sinuses: Visualized sinuses are unremarkable. No fluid levels. Mastoid air cells: Visualized mastoid air cells are well aerated. Vasculature: Atherosclerotic vascular disease is noted at the level of the skull base. Bones/joints: No calvarial fracture or destructive osseous lesions are seen. IMPRESSION: No acute intracranial pathology identified by CT. Electronically signed by: Gina Baltazar On 05/15/2021 17:07:42 PM
[2021-05-15] MEDS ORDERED: BUPR150T5 PO (17:47)
[2021-05-15] MEDS ORDERED: TRAZ-252 PO (17:47)
[2021-05-15 17:55] LABS: BASO % 0.6 % (0.0-1.0); EOS # 0.1 10^3/uL (0.0-0.5); EOS % 1.3 % (0.0-3.0); HEMATOCRIT 37.9 % (36.0-47.0); HEMOGLOBIN 12.8 g/dl (12.0-15.5); LYMPH # 1.6 10^3/uL (1.5-5.0); LYMPH % 21.8 % (24.0-44.0); MEAN CORPUSCULAR HEMOGLOBIN 31.3 pg (27.0-33.0); MEAN CORPUSCULAR HGB CONC 33.8 g/dl (32.0-36.5); MEAN CORPUSCULAR VOLUME 92.7 fl (80.0-96.0); MONO # 0.4 10^3/uL (0.0-0.8); MONO % 5.3 % (2.0-8.0); NEUTROPHILS # 5.1 10^3/uL (1.5-8.5); NEUTROPHILS % 70.6 % (36.0-66.0); PLATELET COUNT, AUTOMATED 253 10^3/uL (150-450); RED BLOOD COUNT 4.09 10^6/uL (4.00-5.40); WHITE BLOOD COUNT 7.2 10^3/uL (4.0-10.0)
[2021-05-15 18:25] LABS: BLOOD UREA NITROGEN 25 MG/DL (7-18); CALCIUM LEVEL 9.5 MG/DL (8.8-10.2); CARBON DIOXIDE LEVEL 27 MEQ/L (21-32); CHLORIDE LEVEL 109 MEQ/L (98-107); CK-MB VALUE MASS 1.2 NG/ML (<3.6); CPK CREATINE PHOSPHOKINASE 52 U/L (26-192); CREATININE FOR GFR 0.82 MG/DL (0.55-1.30); GLOMERULAR FILTRATION RATE > 60.0 (>32); GLUCOSE, FASTING 89 MG/DL (70-100); MAGNESIUM LEVEL 2.4 MG/DL (1.8-2.4); MB/CK RELATIVE INDEX 2.31 (< OR =4); POTASSIUM SERUM 4.3 MEQ/L (3.5-5.1); SODIUM LEVEL 142 MEQ/L (136-145); THYROID STIMULATING HORMONE 0.934 uIU/ML (0.358-3.740); TROPONIN I < 0.02 NG/ML (< 0.10)
[2021-05-15] MEDS ORDERED: LORazepam 2 MG/ML VIAL IV STA (21:30)
--- NOTE | 2021-05-15 22:18 | REPVR ---
PROCEDURE INFORMATION: Exam: MR Head Without Contrast Exam date and time: 05/15/2021 9:43 PM Age: 86 years old Clinical indication: Syncope and collapse; Additional info: Speech difficulties/syncope/weakness TECHNIQUE: Imaging protocol: MR of the head without contrast. COMPARISON: CT Head without contrast 05/15/2021 4:22 PM FINDINGS: Limitations: Motion artifact significantly degrades anatomic detail on this study. Brain: There are global involutional changes of the brain which are in keeping with the patient's age. Signal changes in the periventricular white matter are nonspecific but statistically most likely reflect chronic microvascular ischemic disease. There is no evidence of a focal mass. There is no evidence of an acute ischemic event. There is no evidence of intracranial hemorrhage. Cerebral ventricles: The ventricles are normal in size and configuration. Bones/joints: Unremarkable. Paranasal sinuses: The visualized sinuses are unremarkable. Mastoid air cells: There is no mastoid effusion detected. Orbital cavity: Unremarkable. Soft tissues: Unremarkable. IMPRESSION: 1. No acute ischemia, mass or hemorrhage identified. 2. Involutional changes of the brain in keeping with the patient's age, with findings of chronic microvascular disease. Electronically signed by: Gina Baltazar On 05/15/2021 22:17:42 PM
--- NOTE | 2021-05-15 22:22 | REPVR ---
PROCEDURE INFORMATION: Exam: MRA Head Without Contrast; Arteriography Exam date and time: 05/15/2021 9:43 PM Age: 86 years old Clinical indication: Syncope and collapse; Additional info: Speech difficulties/syncope/weakness TECHNIQUE: Imaging protocol: Magnetic resonance angiography head without contrast. Exam focused on the arteries. COMPARISON: MRA BRAIN W/O CONTRAST 11/26/2020 4:28 PM FINDINGS: ANTERIOR CIRCULATION: Right internal carotid artery: Intracranial segment is patent with no significant stenosis. No aneurysm. Right middle cerebral artery: No occlusion or significant stenosis. No aneurysm. Right anterior cerebral artery: No occlusion or significant stenosis. No aneurysm. Left internal carotid artery: Intracranial segment is patent with no significant stenosis. No aneurysm. Left middle cerebral artery: No occlusion or significant stenosis. No aneurysm. Left anterior cerebral artery: No occlusion or significant stenosis. No aneurysm. POSTERIOR CIRCULATION: Right vertebral artery: No occlusion or significant stenosis. No aneurysm. Left vertebral artery: No occlusion or significant stenosis. No aneurysm. Basilar artery: No occlusion or significant stenosis. No aneurysm. Right posterior cerebral artery: No occlusion or significant stenosis. No aneurysm. Left posterior cerebral artery: There is mild stenosis of the left posterior cerebral artery. IMPRESSION: Mild left PACKAGING TECHNICIAN stenosis. Electronically signed by: Gina Baltazar On 05/15/2021 22:21:55 PM
[2021-05-15 23:49] LABS: RSV AMPLIFICATION NEGATIVE (NEGATIVE)
--- NOTE | 2021-05-16 00:32 | REPVR ---
PROCEDURE INFORMATION: Exam: XR Chest Exam date and time: 05/16/2021 12:18 AM Age: 86 years old Clinical indication: Injury or trauma; Fall; Blunt trauma (contusions or hematomas); Additional info: AMS TECHNIQUE: Imaging protocol: XR of the chest. Views: 1 view. COMPARISON: [facility] PORT[facility] CHEST X-RAY 11/26/2020 1:07 PM FINDINGS: Lungs: There is no pulmonary vascular congestion. There is no evidence of focal parenchymal consolidation. Pleural spaces: There are no pleural effusions. There is no evidence of pneumothorax. Heart/Mediastinum: The cardiac silhouette is within normal limits. Bones/joints: No acute osseous abnormality is identified. IMPRESSION: No acute cardiopulmonary disease identified. Electronically signed by: Gina Baltazar On 05/16/2021 00:31:42 AM
[2021-05-16 01:15] VITALS: BP 159/87
--- NOTE | 2021-05-16 01:38 | HPEPDOC ---
General Date of Admission May 15, 2021 at 23:44 Date of Service: May 15, 2021 Chief Complaint The patient is a 86-year-old female admitted with a reason for visit of Metabolic Encephalopathy History of Present Illness Mrs. Lazaro is an 86 year old female with dementia and urinary urgency who is here for altered mental status and unwitnessed fall. Due to patient's altered mental status, patient had to be relaxed for the MRI. Patient was given Ativan and now is sleeping comfortably. History was obtained from daughter, Chyna, who was present in the room. She tells me that patient saw her PCP last Tuesday. Patient had some difficulty sleeping and was started on trazodone. Patient was also started on Wellbutrin. Patient took trazodone and Wellbutrin on Tuesday and Tuesday. After starting new medications. Patient has been complaining of dizziness and lightheadedness. She is also more confused and not making sense. She did complain of dysuria and daughter thought that this may be a UTI. This morning, the daughter told the patient to stay in bed as the daughter had to go outside. From the window, the daughter heard a crash. She found that the patient had fallen, and the head was stuck between the toilet and the wall. Patient was taken to the ED for evaluation. CT head was negative for intracranial hemorrhage. MRI was negative for stroke. MRA demonstrated mild l eft HIM DIRECTOR stenosis. UA was obtained and was not suggestive of infection. Otherwise, the daughter tells me that the patient has been becoming gradually more agitated and combative. Patient will be admitted for toxic metabolic encephalopathy, possibly secondary to trazodone and Wellbutrin. Home Medications Scheduled Bupropion Hcl (Bupropion HCl Sr) 150 Mg Tab.sr.12h, 150 MG PO QAM, (Reported) VERIFIED WITH EXTERNAL HISTORY - FILLED 05/13/21 Citalopram Hydrobromide (Citalopram HBr) 40 Mg Tablet, 40 MG PO QPM, (Reported) Donepezil HCl (Donepezil HCl) 10 Mg Tablet, 10 MG PO QPM, (Reported) Oxybutynin Chloride (Oxybutynin Chloride ER) 5 Mg Tab, 10 MG PO QPM, (Reported) Scheduled PRN Acetaminophen (Acetaminophen) 500 Mg Tab, 500 MG PO Q4H PRN for PAIN, (Reported) Trazodone HCl (Trazodone HCl) 50 Mg Tablet, 25 MG PO QHS PRN for INSOMNIA, (Reported) 25MG - 50MG PER EXTERNAL MED HISTORY Allergies Coded Allergies: No Known Allergies (Unverified , 02/10/15) Past Medical History Medical History 1. Temporal arteritis 2. 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 Hypertension 4. Dementia 5. Urinary urgency 6. EPEC GI infection Surgical History 1. Colonoscopy Family History Father: Alzheimer's dementia's Mother: Diabetes mellitus, high blood pressure, stroke Social History * Smoker: former Smoker Alcohol: Denies Drugs: denies A-FIB/CHADSVASC A-FIB History Current/History of A-Fib/PAF?: No Review of Systems Constitutional: Reports: Other (Dizzy) ENT: Denies: Head Aches Pulmonary: Denies: Dyspnea Cardiovascular: Reports: Lt Headedness; Denies: Chest Pain Gastrointestinal: Denies: Abdominal Pain Genitourinary: Reports: Dysuria Musculoskeletal: Denies: Joint Pain, Muscle Pain Psych: Reports: Memory Issues Other systems Patient was lethargic and was not able to answer review of systems. Partial review of systems was obtained from daughter Physical Examination General Exam: Negative: Alert, Cooperative Eye Exam: Negative: Sclera icteric ENT Exam: Positive: Other ENT (Left facial swelling) Chest Exam: Positive: Clear to auscultation Heart Exam: Positive: Rate Normal, Regular Rhythm, Murmurs Abdomen Exam: Positive: Normal bowel sounds, Soft Extremity Exam: Negative: Edema Neuro Exam: Positive: Other (Unable to do neuro exam due to patient's lethargy) Psych Exam: Negative: Mental status NL, Mood NL Vital Signs Vital Signs Date Time Temp Pulse Resp B/P (MAP) Pulse Ox O2 Delivery O2 Flow Rate FiO2 05/16/21 01:15 98.0 69 16 159/87 (111) 99 Room Air Laboratory Data Labs 24H Laboratory Tests 2 05/15/21 17:41: Immature Granulocyte % (Auto) 0.4, Neutrophils (%) (Auto) 70.6H, Lymphocytes (%) (Auto) 21.8L, Monocytes (%) (Auto) 5.3, Eosinophils (%) (Auto) 1.3, Basophils (%) (Auto) 0.6, Neutrophils # (Auto) 5.1, Lymphocytes # (Auto) 1.6, Monocytes # (Auto) 0.4, Eosinophils # (Auto) 0.1, Basophils # (Auto) 0.0, Nucleated Red Blood Cells % (auto) 0.0, Anion Gap 6L, Glomerular Filtration Rate > 60.0, Calcium Level 9.5, Magnesium Level 2.4, Total Creatine Kinase 52, Creatine Kinase MB 1.2, Creatine Kinase MB Relative Index 2.31, Troponin I < 0.02, T hyroid Stimulating Hormone (TSH) 0.934, Free Thyroxine 1.10 05/15/21 18:27: Urine Color YELLOW, Urine Appearance HAZY, Urine pH 6.0, Urine Specific [place] 1.020, Urine Protein NEGATIVE, Urine Glucose (UA) NEGATIVE, Urine Ketones NEGATIVE, Urine Blood NEGATIVE, Urine Nitrite NEGATIVE, Urine Bilirubin NEGATIVE, Urine Urobilinogen 2.0H, Urine Leukocyte Esterase NEGATIVE, Urine WBC (Auto) 2, Urine RBC (Auto) 4H, Urine Hyaline Casts (Auto) 0, Urine Bacteria (Auto) NEGATIVE, Urine Squamous Epithelial Cells 1, Urine Mucus (Auto) SMALL, Urine Sperm (Auto) 05/15/21 22:54: Coronavirus (COVID-19)(PCR) NEGATIVE, Influenza Type A (RT-PCR) NEGATIVE, Influenza Type B (RT-PCR) NEGATIVE, Respiratory Syncytial Virus (PCR) NEGATIVE CBC/BMP Laboratory Tests 05/15/21 17:41 Assessment/Plan Mrs. Lazaro is an 86 year old female with dementia and urinary urgency who is here for altered mental status and unwitnessed fall. Patient's altered mental status may be secondary to Wellbutrin and trazodone in the setting of dementia. In addition the oxybutynin may contribute to her confusion. Will hold these medications and provide supportive care. Otherwise, TSH is normal, there is no uremia, UA is negative, and there is no signs of infection. Plan / VTE VTE Prophylaxis Ordered?: Yes Plan Plan 1. Toxic metabolic encephalopathy Most likely due to the combination of Wellbutrin and trazodone We will hold this new medications Provide supportive care 2. Dementia Supportive care Daughter reports patient being more aggressive. Sitter ordered Med rec not completed, but suggests that she is on donepezil. If not correct, please remove 3. Insomnia Hold trazodone Patient currently lethargic due to Ativan Can consider Rozerem if needed 4. Anxiety/depression Hold bupropion and trazodone 5. Urinary urgency Hold oxybutynin as it may also contribute to altered mental status 6. DVT prophylaxis SCDs and teds Disposition: Pending clinical improvement Med rec not completed at the time of this dictation. Please adjust med list when med rec completed NAYANA LEE DO May 16, 2021 01:38
[2021-05-16 06:29] LABS: HEMATOCRIT 37.4 % (36.0-47.0); HEMOGLOBIN 12.5 g/dl (12.0-15.5); MEAN CORPUSCULAR HGB CONC 33.4 g/dl (32.0-36.5); MEAN CORPUSCULAR VOLUME 92.8 fl (80.0-96.0); PLATELET COUNT, AUTOMATED 229 10^3/uL (150-450); RED BLOOD COUNT 4.03 10^6/uL (4.00-5.40); WHITE BLOOD COUNT 5.9 10^3/uL (4.0-10.0)
[2021-05-16 06:35] VITALS: BP 158/85
[2021-05-16 06:59] LABS: ALBUMIN 2.9 GM/DL (3.2-5.2); ALT/SGPT 31 U/L (12-78); BILIRUBIN,TOTAL 0.4 MG/DL (0.2-1.0); BLOOD UREA NITROGEN 19 MG/DL (7-18); CALCIUM LEVEL 8.9 MG/DL (8.8-10.2); CARBON DIOXIDE LEVEL 28 MEQ/L (21-32); CHLORIDE LEVEL 111 MEQ/L (98-107); GLOMERULAR FILTRATION RATE > 60.0 (>32); GLUCOSE, FASTING 78 MG/DL (70-100); POTASSIUM SERUM 3.6 MEQ/L (3.5-5.1); SODIUM LEVEL 143 MEQ/L (136-145); TOTAL PROTEIN 5.9 GM/DL (6.4-8.2)
[2021-05-16] MEDS ORDERED: MEMA1TAB3 PO (08:42)
[2021-05-16] MEDS ORDERED: OXYB10TA23 PO (08:42)
--- NOTE | 2021-05-16 09:08 | IPNPDOC ---
Text Note Date of Service The patient was seen on 05/16/21. NOTE Subjective: Patient seen and examined at bedside. No acute overnight events reported. Patient voices no new medical complaints this morning. Objective: Vital Signs: reviewed and within normal limits General: NAD, lying comfortably in bed, elderly, frail HEENT: NC/AT, EOMI Neck: supple, no masses Chest: lungs CTA B/L Heart: +S1S2, RRR, soft systolic murmur Abd: soft, NT, ND, +BS Ext: no edema Skin: no rashes MSK: full ROM at large joints Neuro: no gross focal deficits Psych: oriented to person only A/P: 86-year-old female admitted for fall and confusion in the setting of baseline dementia. #Toxic metabolic encephalopathy - appears to be adverse effects of recently started medications - combination of Wellbutrin and trazodone -meds on hold Provide supportive care #fall - PT/OT - fall precautions - CT head/MRI brain with no acute pathology #Dementia Supportive care Daughter reports patient being more aggressive. Sitter ordered # Insomnia Hold trazodone Patient currently lethargic due to Ativan Can consider Rozerem if needed #Anxiety/depression Hold bupropion and trazodone #Urinary urgency Hold oxybutynin as it may also contribute to altered mental status # DVT prophylaxis SCDs and teds Disposition: Pending clinical improvement VS,Mazin, I+O VS, Mazin, I+O Laboratory Tests 05/15/21 17:41 05/16/21 06:01 Vital Signs Date Time Temp Pulse Resp B/P (MAP) Pulse Ox O2 Delivery O2 Flow Rate FiO2 05/16/21 06:35 97.3 70 16 158/85 (109) 95 Room Air I&O- Last 24 Hours up to 6 AM 05/16/21 06:00 Intake Total 1000 ml Balance 1000 ml [facility] LAUR[facility] MD May 16, 2021 09:08
[2021-05-16] MEDS ORDERED: HOME MED LIST COMPLETE! XX SCH (09:30)
[2021-05-16 14:00] VITALS: BP 132/73
[2021-05-16] MEDS: oxyBUTYnin *DITROPAN XL* 5 MG TABCR PO SCH (17:39)
[2021-05-16] MEDS: MEMANTINE 5MG TABLET (NAMENDA) PO SCH (20:19)
[2021-05-16] MEDS: DONEPEZIL 5 MG TAB PO SCH (20:19)
[2021-05-16] MEDS: CitaloPRAM (CeleXA) 20 MG TAB PO SCH (20:19)
[2021-05-16] MEDS: ACETAMINOPHEN TAB 650MG DOSE (2X325MG) PO PRN (20:21)
[2021-05-16 22:00] VITALS: BP 116/68
[2021-05-17 06:00] VITALS: BP 171/77
[2021-05-17] MEDS: MEMANTINE 5MG TABLET (NAMENDA) PO SCH ×2 (08:13→20:54)
--- NOTE | 2021-05-17 10:52 | IPNPDOC ---
Text Note Date of Service The patient was seen on 05/17/21. NOTE Subjective: Patient seen and examined at bedside. No acute overnight events reported. Patient voices no new medical complaints this morning. Objective: Vital Signs: reviewed and within normal limits General: NAD, lying comfortably in bed, elderly, frail, in good spirits HEENT: NC/AT, EOMI Neck: supple, no masses Chest: lungs CTA B/L Heart: +S1S2, RRR, soft systolic murmur Abd: soft, NT, ND, +BS Ext: no edema Skin: no rashes MSK: full ROM at large joints Neuro: no gross focal deficits Psych: AAOx3 A/P: 86-year-old female admitted for fall and confusion in the setting of baseline dementia. #Toxic metabolic encephalopathy -resolved - appears to be adverse effects of recently started medications - combination of Wellbutrin and trazodone -meds on hold #fall - PT/OT - fall precautions - CT head/MRI brain with no acute pathology #Dementia Supportive care Daughter reported patient being more aggressive # Insomnia Hold trazodone Patient currently lethargic due to Ativan Can consider Rozerem if needed #Anxiety/depression Hold bupropion and trazodone #Urinary urgency Hold oxybutynin as it may also contribute to altered mental status # DVT prophylaxis SCDs and teds Disposition: Pending PT/OT, social media assistant; extensive discussion with patient's daughter VS,Alejandrobone, I+O VS, Fishbone, I+O Vital Signs Date Time Temp Pulse Resp B/P (MAP) Pulse Ox O2 Delivery O2 Flow Rate FiO2 05/17/21 06:00 98.2 71 16 171/77 (108) 98 Room Air I&O- Last 24 Hours up to 6 AM 05/17/21 06:00 Intake Total 420 ml Balance 420 ml [facility] LAUR[facility] MD May 17, 2021 10:52
[2021-05-17 14:00] VITALS: BP 136/61
--- NOTE | 2021-05-17 14:49 | ECHO ---
ECHOCARDIOGRAM DATE OF PROCEDURE: 05/17/2021 Gender: Female Height: 150 cm Weight: 44 kg REFERRING PHYSICIAN: Babak Yang M.D. INDICATION: Heart murmur. MEASUREMENTS: IVS 0.8 cm LV 3.9 cm LVPW 0.7 cm LA 2.3 cm Aorta 3.2 cm Left atrial volume index 31 IVC 1.3 cm Mitral E wave velocity 77 A wave 143 E prime septal 3.5 E prime lateral 3.5 FINDINGS: This study is of acceptable technical quality. Patient is in sinus rhythm. Left ventricle is of normal size and overall normal systolic function. Basal inferior and inferoposterior delong appear to be hypokinetic, but overall ejection fraction (EF) is preserved, estimated around 65%. Right ventricle is normal size and systolic function. Both atria appear normal. Aortic valve is heavily calcified. It was poorly visualized and I cannot comment much on its structure. There are also degenerative abnormalities of mitral valve with prominent mitral annular calcifications. Mobility of leaflets is preserved. Tricuspid valve appears normal. Pulmonic valve was relatively poorly visualized, but grossly appears normal. Trivial pericardial effusion is noted. Inferior vena cava is normal size. Aortic root is normal. Aortic arch and abdominal aorta were not visualized. Doppler interrogation of aortic valve reveals trace insufficiency, but there is probably moderate aortic stenosis, with mean gradient 27 mmHg. Calculated aortic valve area is 0.6, which is likely inaccurate. There is trace mitral insufficiency and trace tricuspid insufficiency. Calculated pulmonary artery pressure is within normal limits. Mitral inflow pattern and tissue Doppler imaging of mitral annulus reveals grade 1 diastolic dysfunction. CONCLUSIONS: 1. Study is of acceptable technical quality. Underlying sinus rhythm. 2. Normal left ventricular (LV) size with preserved LV systolic function and grade 1 diastolic dysfunction. On some views, it appears that there is hypokinesis of basal inferior and inferoposterior delong. 3. Normal right ventricular (RV) size and systolic function. 4. Calcified aortic valve that was poorly seen. Mean gradient 27 mmHg, suggestive of approximately moderate aortic stenosis. Cannot rule out severe aortic stenosis. 5. Trace mitral and tricuspid insufficiency. 6. Normal central venous pressure and likely normal pulmonary artery pressure. COMMENTS: If patient is symptomatic, one might consider additional evaluation, as the visualization of the aortic valve was rather limited. [facility]
[2021-05-17] MEDS: oxyBUTYnin *DITROPAN XL* 5 MG TABCR PO SCH (18:24)
[2021-05-17] MEDS: DONEPEZIL 5 MG TAB PO SCH (20:54)
[2021-05-17] MEDS: CitaloPRAM (CeleXA) 20 MG TAB PO SCH (20:54)
[2021-05-17 22:00] VITALS: BP 149/70
[2021-05-18 05:03] VITALS: BP 150/73
[2021-05-18 06:00] VITALS: BP 150/73
[2021-05-18 08:01] LABS: HEMATOCRIT 37.9 % (36.0-47.0); HEMOGLOBIN 12.6 g/dl (12.0-15.5); MEAN CORPUSCULAR HEMOGLOBIN 30.9 pg (27.0-33.0); MEAN CORPUSCULAR HGB CONC 33.2 g/dl (32.0-36.5); MEAN CORPUSCULAR VOLUME 92.9 fl (80.0-96.0); PLATELET COUNT, AUTOMATED 249 10^3/uL (150-450); RED BLOOD COUNT 4.08 10^6/uL (4.00-5.40); WHITE BLOOD COUNT 6.4 10^3/uL (4.0-10.0)
[2021-05-18 08:23] LABS: BILIRUBIN,TOTAL 0.3 MG/DL (0.2-1.0); CALCIUM LEVEL 8.5 MG/DL (8.8-10.2); CREATININE FOR GFR 0.95 MG/DL (0.55-1.30); GLOMERULAR FILTRATION RATE 59.5 (>32); POTASSIUM SERUM 3.4 MEQ/L (3.5-5.1)
[2021-05-18] MEDS: MEMANTINE 5MG TABLET (NAMENDA) PO SCH ×2 (08:38→20:06)
[2021-05-18] MEDS ORDERED: POTASSIUM CHLORIDE 10 MEQ SR TABLET PO ONE (10:40)
[2021-05-18 10:53] LABS: MAGNESIUM LEVEL 2.2 MG/DL (1.8-2.4)
--- NOTE | 2021-05-18 12:27 | IPNPDOC ---
Text Note Date of Service The patient was seen on 05/18/21. NOTE Subjective: Patient seen and examined at bedside. No acute overnight events reported. Patient voices no new medical complaints this morning. She commented on dizziness while ambulating. Objective: Vital Signs: reviewed and within normal limits General: NAD, lying comfortably in bed, elderly, frail, in good spirits, eating lunch HEENT: NC/AT, EOMI Neck: supple, no masses Chest: lungs CTA B/L Heart: +S1S2, RRR, systolic murmur Abd: soft, NT, ND, +BS Ext: no edema Skin: no rashes MSK: full ROM at large joints Neuro: no gross focal deficits Psych: AAOx3 A/P: 86-year-old female admitted for fall and confusion in the setting of baseline dementia. #Toxic metabolic encephalopathy -resolved - appears to be adverse effects of recently started medications - combination of Wellbutrin and trazodone -meds on hold #fall - still notes dizziness with ambulation - check orthostatics - PT/OT - fall precautions - CT head/MRI brain with no acute pathology #Dementia Supportive care Daughter reported patient being more aggressive # Insomnia Hold trazodone Patient currently lethargic due to Ativan Can consider Rozerem if needed #Anxiety/depression Hold bupropion and trazodone #Urinary urgency Hold oxybutynin as it may also contribute to altered mental status # DVT prophylaxis SCDs and teds Disposition: Pending PT/OT, social psychologist; extensive discussion with patient's daughter Chyna - [phone] VS,Fishbone, I+O VS, Fishbone, I+O Laboratory Tests 05/18/21 07:43 Vital Signs Date Time Temp Pulse Resp B/P (MAP) Pulse Ox O2 Delivery O2 Flow Rate FiO2 05/18/21 06:00 97.7 70 16 150/73 (98) 98 Room Air I&O- Last 24 Hours up to 6 AM 05/18/21 06:00 Intake Total 410 ml Balance 410 ml [facility] LAURENT MD May 18, 2021 12:27
[2021-05-18 14:00] VITALS: BP 141/79
[2021-05-18 15:00] VITALS: BP_SYST 141; BP_SYST 144; BP_SYST 152; BP_DIAS 79; BP_DIAS 80; BP_DIAS 98
--- NOTE | 2021-05-18 16:32 | ECGEPIP ---
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
[2021-05-18] MEDS: oxyBUTYnin *DITROPAN XL* 5 MG TABCR PO SCH (17:03)
[2021-05-18 19:48] VITALS: BP 143/84
[2021-05-18] MEDS: CitaloPRAM (CeleXA) 20 MG TAB PO SCH (20:06)
[2021-05-18] MEDS: DONEPEZIL 5 MG TAB PO SCH (20:07)
[2021-05-19 05:56] VITALS: BP 170/81
[2021-05-19 07:29] LABS: BASO # 0.1 10^3/uL (0.0-0.2); EOS # 0.2 10^3/uL (0.0-0.5); EOS % 2.3 % (0.0-3.0); HEMATOCRIT 37.9 % (36.0-47.0); HEMOGLOBIN 12.9 g/dl (12.0-15.5); LYMPH # 1.4 10^3/uL (1.5-5.0); LYMPH % 19.2 % (24.0-44.0); MEAN CORPUSCULAR VOLUME 91.1 fl (80.0-96.0); MONO # 0.5 10^3/uL (0.0-0.8); MONO % 6.7 % (2.0-8.0); NEUTROPHILS % 70.2 % (36.0-66.0); PLATELET COUNT, AUTOMATED 211 10^3/uL (150-450); RED BLOOD COUNT 4.16 10^6/uL (4.00-5.40)
[2021-05-19 08:03] LABS: BLOOD UREA NITROGEN 15 MG/DL (7-18); CALCIUM LEVEL 8.8 MG/DL (8.8-10.2); CARBON DIOXIDE LEVEL 27 MEQ/L (21-32); CHLORIDE LEVEL 107 MEQ/L (98-107); CREATININE FOR GFR 0.78 MG/DL (0.55-1.30); GLOMERULAR FILTRATION RATE > 60.0 (>32); GLUCOSE, FASTING 83 MG/DL (70-100); MAGNESIUM LEVEL 2.3 MG/DL (1.8-2.4); POTASSIUM SERUM 4.1 MEQ/L (3.5-5.1); SODIUM LEVEL 140 MEQ/L (136-145)
[2021-05-19] MEDS: MEMANTINE 5MG TABLET (NAMENDA) PO SCH ×2 (08:46→19:49)
--- NOTE | 2021-05-19 10:53 | IPNPDOC ---
Text Note Date of Service The patient was seen on 05/19/21. NOTE Subjective: Patient is an 86-year-old female who presented to the emergency room after she had fallen confused. Patient was admitted to the hospital service for further evaluation and treatment. Patient was seen and examined at the bedside. Patient denies any chest pain, shortness breath, palpitations, nausea, vomiting, abdominal pain or diarrhea. Objective: Vitals (See below) General: Lying in bed, appears comfortable, oriented to person HEENT: NC, AT CVS: +S1S2 Lungs: Fair air entry b/l, -w/r/r Abdomen: Soft, ND, NT Extremities: - Edema, - Calf tenderness Imaging: CT Head 05/15: No acute intracranial pathology identified by CT. MRI Brain 05/15: 1. No acute ischemia, mass or hemorrhage identified. 2. Involutional changes of the brain in keeping with the patient's age, with findings of chronic microvascular disease. MRA Brain 05/15: Mild left STUCCO MASON stenosis. CXR 05/15: No acute cardiopulmonary disease identified. Assessment and plan: s/p Toxic metabolic encephalopathy - No signs of infection - Electrolytes noted - Medications have been adjusted - appears to be adverse effects of recently started medications - combination of Wellbutrin and trazodone; have since been discontinued Falll - Reports dizziness - Imaging negative - c/w fall precautions - c/w PT and OT; looking into long term care social worker placement / rehabilitation Dementia - Daughter reported patient being more aggressive - c/w Donepezil and Memantine - Will likely need long term care social worker care / placement Insomnia - Will continue to hold Trazodone Anxiety/depression - Will continue to hold bupropion and trazodone - c/w Citalopram Urinary urgency - c/w oxybutynin DVT prophylaxis - c/w TEDs/Sequentials - Will start Heparin Disposition: - Pending placement - Will transition to [facility] status - Daughter Chyna - [phone] VSMazin, I+O VSMazin, I+O Laboratory Tests 05/19/21 07:15 Vital Signs Date Time Temp Pulse Resp B/P (MAP) Pulse Ox O2 Delivery O2 Flow Rate FiO2 05/19/21 05:56 98.2 75 18 170/81 (110) 97 Room Air I&O- Last 24 Hours up to 6 AM 05/19/21 06:00 Intake Total 960 ml Output Total 0 ml Balance 960 ml ANUP BARKLEY MD May 19, 2021 10:53
[2021-05-19] MEDS: HEPARIN SOD (PORCINE) 5000UNITS/ML 1ML VIAL/SYRINGE SQ SCH ×2 (15:01→19:52)
[2021-05-19] MEDS: oxyBUTYnin *DITROPAN XL* 5 MG TABCR PO SCH (17:35)
[2021-05-19] MEDS: DONEPEZIL 5 MG TAB PO SCH (19:49)
[2021-05-19] MEDS: CitaloPRAM (CeleXA) 20 MG TAB PO SCH (19:49)
[2021-05-20] MEDS: HEPARIN SOD (PORCINE) 5000UNITS/ML 1ML VIAL/SYRINGE SQ SCH ×3 (05:33→21:20)
[2021-05-20 06:00] VITALS: BP 172/80
[2021-05-20 06:16] LABS: BASO # 0.1 10^3/uL (0.0-0.2); BASO % 1.3 % (0.0-1.0); EOS # 0.2 10^3/uL (0.0-0.5); HEMATOCRIT 38.5 % (36.0-47.0); HEMOGLOBIN 12.9 g/dl (12.0-15.5); LYMPH # 1.8 10^3/uL (1.5-5.0); LYMPH % 27.9 % (24.0-44.0); MEAN CORPUSCULAR HEMOGLOBIN 30.5 pg (27.0-33.0); MEAN CORPUSCULAR HGB CONC 33.5 g/dl (32.0-36.5); MONO # 0.4 10^3/uL (0.0-0.8); MONO % 6.9 % (2.0-8.0); NEUTROPHILS # 3.8 10^3/uL (1.5-8.5); NEUTROPHILS % 60.4 % (36.0-66.0); PLATELET COUNT, AUTOMATED 281 10^3/uL (150-450); RED BLOOD COUNT 4.23 10^6/uL (4.00-5.40); WHITE BLOOD COUNT 6.3 10^3/uL (4.0-10.0)
[2021-05-20 06:35] LABS: BLOOD UREA NITROGEN 16 MG/DL (7-18); CARBON DIOXIDE LEVEL 30 MEQ/L (21-32); CHLORIDE LEVEL 107 MEQ/L (98-107); CREATININE FOR GFR 0.85 MG/DL (0.55-1.30); GLOMERULAR FILTRATION RATE > 60.0 (>32); GLUCOSE, FASTING 81 MG/DL (70-100); MAGNESIUM LEVEL 2.3 MG/DL (1.8-2.4); POTASSIUM SERUM 4.1 MEQ/L (3.5-5.1); SODIUM LEVEL 140 MEQ/L (136-145)
[2021-05-20] MEDS ORDERED: AMLO1TAB24 PO (08:13)
[2021-05-20] MEDS: MEMANTINE 5MG TABLET (NAMENDA) PO SCH ×2 (10:07→21:19)
[2021-05-20] MEDS: amLODIPine 5 MG TAB PO SCH (10:08)
[2021-05-20] MEDS: oxyBUTYnin *DITROPAN XL* 5 MG TABCR PO SCH (17:45)
[2021-05-20] MEDS: DONEPEZIL 5 MG TAB PO SCH (21:19)
[2021-05-20] MEDS: CitaloPRAM (CeleXA) 20 MG TAB PO SCH (21:19)
[2021-05-21 06:00] VITALS: BP 142/82
[2021-05-21] MEDS: HEPARIN SOD (PORCINE) 5000UNITS/ML 1ML VIAL/SYRINGE SQ SCH (06:11)
[2021-05-21 09:05] LABS: BASO # 0.1 10^3/uL (0.0-0.2); EOS # 0.2 10^3/uL (0.0-0.5); EOS % 2.9 % (0.0-3.0); HEMATOCRIT 37.3 % (36.0-47.0); HEMOGLOBIN 12.6 g/dl (12.0-15.5); LYMPH # 1.9 10^3/uL (1.5-5.0); LYMPH % 26.5 % (24.0-44.0); MEAN CORPUSCULAR HEMOGLOBIN 30.8 pg (27.0-33.0); MEAN CORPUSCULAR HGB CONC 33.8 g/dl (32.0-36.5); MEAN CORPUSCULAR VOLUME 91.2 fl (80.0-96.0); MONO # 0.5 10^3/uL (0.0-0.8); MONO % 6.4 % (2.0-8.0); NEUTROPHILS # 4.6 10^3/uL (1.5-8.5); NEUTROPHILS % 62.9 % (36.0-66.0); PLATELET COUNT, AUTOMATED 285 10^3/uL (150-450); RED BLOOD COUNT 4.09 10^6/uL (4.00-5.40); WHITE BLOOD COUNT 7.3 10^3/uL (4.0-10.0)
[2021-05-21 09:35] LABS: BLOOD UREA NITROGEN 18 MG/DL (7-18); CALCIUM LEVEL 9.3 MG/DL (8.8-10.2); CARBON DIOXIDE LEVEL 28 MEQ/L (21-32); CHLORIDE LEVEL 106 MEQ/L (98-107); CREATININE FOR GFR 0.85 MG/DL (0.55-1.30); GLOMERULAR FILTRATION RATE > 60.0 (>32); GLUCOSE, FASTING 107 MG/DL (70-100); MAGNESIUM LEVEL 2.3 MG/DL (1.8-2.4); POTASSIUM SERUM 3.8 MEQ/L (3.5-5.1); SODIUM LEVEL 139 MEQ/L (136-145)
[2021-05-21] MEDS: ACETAMINOPHEN TAB 650MG DOSE (2X325MG) PO PRN (10:02)
[2021-05-21] MEDS: MEMANTINE 5MG TABLET (NAMENDA) PO SCH (10:02)
[2021-05-21 10:03] VITALS: BP 142/82
[2021-05-21] MEDS: amLODIPine 5 MG TAB PO SCH (10:03)
--- NOTE | 2021-05-21 10:06 | DS.PDOC ---
Discharge Summary General Date of Admission May 15, 2021 at 23:44 Date of Discharge 05/21/2021 Discharge Summary PROCEDURES PERFORMED DURING STAY: [None]. ADMITTING DIAGNOSES / DISCHARGE DIAGNOSES: s/p Toxic metabolic encephalopathy Falll Dementia Insomnia Anxiety/depression Urinary urgency DVT prophylaxis COMPLICATIONS/CHIEF COMPLAINT: Confusion HISTORY OF PRESENT ILLNESS: Patient is an 86-year-old female who presented to the emergency room after she had fallen confused. Patient was admitted to the hospital service for further evaluation and treatment. Patient was seen and examined at the bedside. Patient was seen sitting up in bed eating breakfast. She denies any chest pain, shortness breath, palpitations. Denied any nausea, vomiting, abdominal pain, diarrhea, or urinary discomfort HOSPITAL COURSE: s/p Toxic metabolic encephalopathy - No signs of infection - Electrolytes noted - Medications have been adjusted - Appears to be adverse effects of recently started medications - combination of Wellbutrin and trazodone; have since been discontinued - Will have outpatient follow-up with primary care provider within the next 7 days Falll - Reports dizziness - Imaging negative - c/w fall precautions - c/w PT and OT; looking into custodial placement / rehabilitation Dementia - Daughter reported patient being more aggressive - c/w Donepezil and Memantine - Patient will be transitioned to [facility] Insomnia - Will discontinue Trazodone Anxiety/depression - Will discontinue bupropion and trazodone - c/w Citalopram Urinary urgency - c/w oxybutynin DVT prophylaxis - c/w Heparin DISCHARGE MEDICATIONS: Please see below. ALLERGIES: Please see below. PHYSICAL EXAMINATION ON DISCHARGE: Vitals (See below) General: Patient is laying in bed eating breakfast appears to be comfortable, is oriented to person only HEENT: NC, AT CVS: +S1S2 Lungs: Fair air entry b/l, noticed wheezing, rales or rhonchi Abdomen: Soft, nondistended, nontender Extremities: No evidence of edema LABORATORY DATA: Please see below. IMAGING: CT Head 05/15: No acute intracranial pathology identified by CT. MRI Brain 05/15: 1. No acute ischemia, mass or hemorrhage identified. 2. Involutional changes of the brain in keeping with the patient's age, with findings of chronic microvascular disease. MRA Brain 05/15: Mild left STEAM TUNNEL FEEDER stenosis. CXR 05/15: No acute cardiopulmonary disease identified. ACTIVITY: [As tolerated]. DISCHARGE PLAN: Follow-up with PCP within the next 7 days Remain compliant with treatment plan and medications Return to the ER if you experience any problems DISPOSITION: [facility] DISCHARGE CONDITION: [Stable]. TIME SPENT ON DISCHARGE: 35 minutes. Vital Signs/I&Os Vital Signs Date Time Temp Pulse Resp B/P (MAP) Pulse Ox O2 Delivery O2 Flow Rate FiO2 05/21/21 06:00 98.4 77 19 142/82 (102) 98 Room Air I&O- Last 24 Hours up to 6 AM 05/21/21 05:59 Intake Total 520 ml Balance 520 ml Laboratory Data Labs 24H Laboratory Tests 2 05/20/21 10:11: Coronavirus (COVID-19)(PCR) NEGATIVE 05/21/21 08:22: Immature Granulocyte % (Auto) 0.3, Neutrophils (%) (Auto) 62.9, Lymphocytes (%) (Auto) 26.5, Monocytes (%) (Auto) 6.4, Eosinophils (%) (Auto) 2.9, Basophils (%) (Auto) 1.0, Neutrophils # (Auto) 4.6, Lymphocytes # (Auto) 1.9, Monocytes # (Auto) 0.5, Eosinophils # (Auto) 0.2, Basophils # (Auto) 0.1, Nucleated Red Blood Cells % (auto) 0.0, Anion Gap 5L, Glomerular Filtration Rate > 60.0, Calcium Level 9.3, Magnesium Level 2.3 CBC/BMP Laboratory Tests 05/21/21 08:22 Discharge Medications Scheduled Amlodipine Besylate (Amlodipine Besylate) 5 Mg Tablet, 5 MG PO DAILY Citalopram Hydrobromide (Citalopram HBr) 40 Mg Tablet, 40 MG PO QPM, (Reported) Donepezil HCl (Donepezil HCl) 10 Mg Tablet, 10 MG PO QPM, (Reported) Memantine HCl (Memantine HCl) 5 Mg Tablet, 5 MG PO BID, (Reported) Oxybutynin Chloride (Oxybutynin Chloride ER) 10 Mg Tab.er.24, 10 MG PO QPM, (Reported) Scheduled PRN Acetaminophen (Acetaminophen) 500 Mg Tab, 500 MG PO Q4H PRN for PAIN, (Reported) Allergies Coded Allergies: No Known Allergies (Unverified , 02/10/15) ANUP BARKLEY MD May 21, 2021 10:06
== END 2021-05-21 11:40 | DRG 93 ==
LOC: M ED 14:26 → M ED INP 23:44 → M MS5PR 05-16 01:08
PROVIDERS: ADMIT Internal Medicine; ATTEND Internal Medicine
DX: G92 Toxic encephalopathy (principal); F03.90 Unspecified dementia, unspecified severity, without behavioral disturbance, psychotic disturbance, mood disturbance, and anxiety; R39.15 Urgency of urination; I10 Essential (primary) hypertension; I65.23 Occlusion and stenosis of bilateral carotid arteries; G47.00 Insomnia, unspecified; Z79.899 Other long term (current) drug therapy; Z66 Do not resuscitate; Z87.891 Personal history of nicotine dependence; Z20.822 Contact with and (suspected) exposure to COVID-19; T43.295A Adverse effect of other antidepressants, initial encounter; T43.215A Adverse effect of selective serotonin and norepinephrine reuptake inhibitors, initial encounter